=== PATIENT | female | born 1990 | race Caucasian/White ===

== ENCOUNTER 2019-06-30 10:10 | Outpatient (RCR) | payer BC, SELFPAY ==
[2019-06-30 10:48] VITALS: BP 110/69; PULSE 89
== END 2019-08-22 08:54 | disposition home or self-care (01) ==
LOC: ANHOBOP 10:10
PROVIDERS: PCP Internal Medicine; Visit Provider Obstetrics & Gynecology
DX: O36.8120 Decreased fetal movements, second trimester, not applicable or unspecified (principal); Z3A.19 19 weeks gestation of pregnancy
CPT/HCPCS: 59025

== ENCOUNTER 2019-07-13 08:46 | Outpatient (CLI) | payer BC, SELFPAY ==
[2019-07-13 09:21] LABS: Basophils Absolute Auto 0.03 K/mm3 (0.00-0.10); Basophils Percent Auto 0.4 % (0.0-1.0); Eosinophils Percent Auto 1.2 % (1.0-6.0); Hematocrit 33.8 % (35.0-49.0); Hemoglobin 11.5 g/dL (12.0-15.0); Immature Granulocyte Absolute 0.07 K/mm3 (0.00-0.00); Immature Granulocyte Percent A 0.8 % (0.0-0.0); Lymphocytes Absolute Auto 1.56 K/mm3 (1.10-4.50); Lymphocytes Percent Auto 18.3 % (18.0-42.0); Mean Corpuscular Hemoglobin 29.4 pg (27.0-31.0); Mean Corpuscular Volume 86.4 fL (78.0-102.0); Mean Platelet Volume 10.6 fl (9.2-11.8); Monocytes Percent Auto 5.9 % (2.0-11.0); Neutrophils Absolute Auto 6.3 K/mm3 (1.7-7.2); Neutrophils Percent Auto 73.4 % (50.0-70.0); Platelet Count Result 251 K/mm3 (150-420); Red Blood Count 3.91 M/mm3 (4.20-5.40); Red Cell Distribution Width 13.9 % (11.6-14.4); White Blood Count 8.5 K/mm3 (4.8-10.8)
[2019-07-13 10:27] LABS: Alanine Aminotransferase 12 U/L (14-59); Albumin Level 2.9 g/dL (3.4-5.0); Alkaline Phosphatase 82 U/L (46-116); Aspartate Amino Transferase 13 U/L (15-37); Bilirubin,Total 0.3 mg/dL (0.00-1.00); Blood Urea Nitrogen 8 mg/dL (7-18); Calcium 8.5 mg/dL (8.5-10.1); Carbon Dioxide 25 mmol/L (21-32); Chloride 103 mmol/L (98-108); Estimated Glomerular Filt Rate > 60; Free T4 Free Thyroxine 0.82 ng/dL (0.76-1.46); Glucose 76 mg/dL (70-99); Osmolality Calculated 283 mOsm/kg (285-295); Sodium 138 mmol/L (136-145); Thyroid Stimulating Hormone 0.48 uIU/mL (0.36-3.74); Total Protein 6.9 g/dL (6.4-8.2)
[2019-07-17 09:05] LABS: Toxoplasma IgM Antibody <8.00 AU/mL (<8.00)
[2019-07-17 10:02] LABS: Toxoplasma IgG Antibody <7.20 IU/mL (<7.20)
[2019-07-17 14:43] LABS: CMV IgG Antibody <0.60 U/mL (<0.60)
[2019-07-18 13:34] LABS: Hematocrit 36.7 % (35.0-45.0); Hemoglobin 11.7 g/dL (11.7-15.5); MCH 29.3 pg (27.0-33.0); MCV 91.8 FL (80.0-100.0); RDW 16.2 % (11.0-15.0)
== END 2019-07-13 08:47 | disposition home or self-care (01) ==
LOC: CHSLAB 08:51
PROVIDERS: PCP Internal Medicine
DX: P83.2 Hydrops fetalis not due to hemolytic disease (principal); O35.9 Maternal care for (suspected) fetal abnormality and damage, unspecified
CPT/HCPCS: 36415; 80053; 83021; 84439; 84443; 85025; 86644; 86747; 86777; 86850; 86900; 86901

== ENCOUNTER 2019-08-16 17:44 | Inpatient (IN) | payer BC, SELFPAY ==
--- NOTE | ~2019-08-16 | US_ITS ---
EXAMINATION: US OB limited DATE: 08/18/2019 14:12 INDICATION: Retained products of conception. TECHNIQUE: Multiple transabdominal sonographic images of the pelvis were obtained. COMPARISON: None. FINDINGS: The uterus is enlarged, consistent with recent . The endometrial complex measures up to 15 m m in thickness. No internal vascularity visualized. IMPRESSION: 1. Thickened endometrial complex suspicious for retained products of conception. Reviewed, dictated and finalized at location A. IMPRESSION: 1. Thickened endometrial complex suspicious for retained products of conception .
[2019-08-16 18:34] VITALS: BMI 27.0
[2019-08-16 18:51] LABS: Basophils Percent Auto 0.4 % (0.2-1.2); Eosinophils Absolute Auto 0.1 K/mm3 (0-0.3); Hematocrit 32.8 % (37.0-47.0); Hemoglobin 10.7 g/dL (12.0-15.0); Immature Granulocyte Absolute 0.12 K/mm3 (0.00-0.031); Immature Granulocyte Percent A 1.3 % (0-0.5); Lymphocytes Absolute Auto 2.11 K/mm3 (0.9-3.2); Lymphocytes Percent Auto 22.8 % (18.3-44.2); Mean Corpuscular HGB Conc 32.6 g/dl (32-36); Mean Corpuscular Hemoglobin 28.2 pg (26-34); Mean Corpuscular Volume 86.5 fl (80-100); Mean Platelet Volume 10.8 fl (7.4-10.4); Monocytes Absolute Auto 0.6 K/mm3 (0.1-0.6); Monocytes Percent Auto 6.6 % (2.6-8.5); Neutrophils Absolute Auto 6.3 K/mm3 (1.3-6.7); Neutrophils Percent Auto 67.9 % (45.5-73.1); Platelet Count Result 303 k/mm3 (150-375); Red Blood Count 3.79 M/mm3 (4.2-5.4); White Blood Count 9.2 K/mm3 (4.5-10.0)
[2019-08-16 19:00] VITALS: RESP 20; TEMP 37.4
[2019-08-16 19:09] VITALS: BP 111/71; PULSE 89
[2019-08-16] MEDS: OXYTOCIN 30 UNITS/NS 500 ML 30 UNITS/500 ML BAG IV CONT (19:21)
[2019-08-16] MEDS: LACTATED RINGERS 1,000 ML 125 ML IV CONT (19:21)
[2019-08-16 19:33] LABS: Free T4 Free Thyroxine 0.66 ng/mL (0.78-2.19)
[2019-08-16 20:00] VITALS: BP 115/63; PULSE 82
--- NOTE | 2019-08-16 20:43 | LDADM ---
This patient, Nicky Mao, was admitted to Labor/Delivery/Recovery 110 on 08/16/19 at 17:44. Plans for labor, pain management and were discussed with patient. Patient/family oriented to hospital policies and general routines including ID bracelet, bed and alarms, visiting hours, pain management, procedures, bathroom and other care routines, personal items, smoking policy, room service/diet and guest tray routines, and visiting hours. Patient/Family are encouraged to report perceived risks to care and to ask questions if they do not understand what they are told or what they should do. See OBIX for further documentation.
[2019-08-17] VITALS (38 sets, daily range): BP systolic 82–119; BP diastolic 42–73; PULSE 70–101; RESP 18–20; TEMP 36.4–36.8
[2019-08-17] MEDS: LACTATED RINGERS 1,000 ML 125 ML IV CONT ×2 (03:02→16:47)
--- NOTE | 2019-08-17 10:39 | WPDOBADMIT ---
Obstetrics - Admit Note Admission Note: record reviewed. No pertinent additions to the history and/or any subsequent changes in the physical findings that are not consistent with the expected course of the were found. Additions to the history and/or subsequent changes in the physical findings follow. at 26 weeks with known trisomy 21 fetus with multiple anomalies was found to have IUFD on U/S yesterday. She was admitted for induction of labor 08/15 and given pitocin throughout the night. Cervix 1/thick/-3. AROM unable to be performed. Will stop pitocin and start cytotec 25 mcg vaginally Q4 hours until cervix more favorable. She and agree with this plan.
[2019-08-17] MEDS: MISOPROSTOL 25 MCG TABLET VAGINAL ×2 (12:24→23:23)
[2019-08-17] MEDS: MISOPROSTOL 50 MCG TABLET PO (20:09)
[2019-08-18] VITALS (77 sets, daily range): BP systolic 74–226; BP diastolic 30–182; PULSE 70–270; RESP 12–18; TEMP 36.4–37.7; O2SAT 99–100
[2019-08-18] MEDS: LACTATED RINGERS 1,000 ML 125 ML IV CONT ×3 (00:08→15:30)
[2019-08-18] MEDS: MISOPROSTOL 25 MCG TABLET VAGINAL (03:23)
--- NOTE | 2019-08-18 08:07 | PM.OBPNLAB ---
Pain Control Date/time seen: 08/18/19 08:07 Pain control: tolerating well Pelvic Exam Dilation (cm): 3 Effacement (%): 50 station: -2 Amniotic membrane status: Ruptured Comments: AROM with clear fluid noted Contractions Monitor mode: External Contraction frequency: 2 Contraction pattern: Regular Contraction phase: Resting Contraction intensity: Mild Status Comments: No monitoring due to IUFD Assessment and Plan Pitocin rate (mU/min): 10 Assessment: induction ongoing Plan: continuous present management
[2019-08-18] MEDS: KETOROLAC 30 MG/ML VIAL (*BKC) (09:43)
--- NOTE | 2019-08-18 12:22 | WPDANESEPP ---
Anes - Eval Pre Procedure Procedure: Labor Epidural Date/Time: 08/18/19 12:22 Surgeon: Jake Preop Diagnosis: IUFD, Labor Pain Pre Op Diagnosis: Demise Patient Data Age: 29 Gender: F Height: 6 ft 1 in Weight: 93 kg Last Vital Signs Temp 37.7 C H 08/18/19 12:20 Pulse 100 08/18/19 12:20 Resp 18 08/18/19 03:29 BP 114/65 08/18/19 12:20 Pulse Ox 100 08/18/19 12:17 Allergies Allergy/AdvReac Type Severity Reaction Status Date / Time Sulfa (Sulfonamide Allergy Unknown Verified 01/28/19 10:08 Antibiotics) Patient hx anesthesia problems: none Family hx anesthesia problems: none PMFSH Family History Family History Father Patient's father is in good health, Onset Age: 59 Diabetes mellitus Grandparent Malignant neoplasm of prostate, Onset Age: 70 Family history of malignant neoplasm of breast, Onset Age: 60 Mother No problems noted. Other Family history of Alzheimer's disease Family history of malignant neoplasm of thyroid High cholesterol Thyroid cancer Social History Social History Smoking status: Never smoker Alcohol intake: never Substance use: never Gender identity (if verbalized by the patient): Female Spiritual care concerns: No Exam Day of Procedure 08/18/19 12:22 Patient weight: normal Heart: regular rate and rhythm Lungs: normal air movement Airway: Mallampati scale class II Neurological: alert and oriented
[2019-08-18] MEDS: OXYTOCIN 30 UNITS/NS 500 ML 30 UNITS/500 ML BAG 999 UNITS IV CONT (13:07)
--- NOTE | 2019-08-18 13:20 | PM.OBPRVD ---
OB - Delivery Note Procedure Delivery date: 08/18/19 Procedure: (IUFD) events: Labor Induction Intrapartal events: Prolonged Labor > 20 hours Induction method: AROM, per misoprostol protocol and per pitocin protocol Delivery monitor: none Route of delivery: Laceration description: None Specimen: Yes Estimated blood loss (mL): 365 Anesthesia type: Epidural Disposition: floor Complications: Manual removal of placenta Baby Date of : 08/18/19 Time of : 12:45 Weeks of gestation at delivery: 26 Infant gender: Female presentation: vertex Placenta delivery description: Manual Removal score one minute: 0 score five minutes: 0 score ten minutes: 0
[2019-08-18] MEDS: ceFAZolin 2 GM/D5W 50 ML 2 GM/50 ML BAG IVPB (14:16)
--- NOTE | 2019-08-18 15:07 | WPDPN ---
Progress Note: A&P Assessment and Plan (1) Retained placenta or amniotic membrane after delivery without hemorrhage: Code(s): O73.1 - Retained portions of placenta and membranes, without hemorrhage Status: Acute Assessment and Plan: She agrees to proceed with D&C and signed consent after R/B/C/A discussed Time Spent With Patient Time with patient: less than 15 minutes Exam Const: General: no acute distress Resp: Auscultation: clear to auscultation bilaterally Cardio: Rate: regular rate Rhythm: regular rhythm GI: GI Palp: Yes Soft to palpation Other: Fundus firm nontender below umbilicus Extrem: General: no edema Psych: Mental Status: mental status grossly normal Objective Data Vital Signs Vital Signs: Vital Signs - 24 hr 08/17/19 16:39 08/17/19 17:00 08/17/19 17:30 Temperature Pulse Rate 87 86 92 Respiratory Rate Blood Pressure 110/64 114/62 113/68 Pulse Oximetry 08/17/19 18:00 08/17/19 18:18 08/17/19 18:30 Temperature 36.4 C L Pulse Rate 90 87 Respiratory Rate 20 Blood Pressure 108/63 119/65 Pulse Oximetry 08/17/19 19:00 08/17/19 19:30 08/17/19 20:00 Temperature Pulse Rate 95 82 84 Respiratory Rate Blood Pressure 114/63 108/64 114/69 Pulse Oximetry 08/17/19 20:30 08/17/19 21:00 08/17/19 21:30 Temperature Pulse Rate 88 79 70 Respiratory Rate Blood Pressure 116/65 101/42 L 96/52 L Pulse Oximetry 08/17/19 22:00 08/17/19 22:30 08/17/19 23:00 Temperature Pulse Rate 77 83 99 Respiratory Rate Blood Pressure 86/60 L 98/51 L 114/73 Pulse Oximetry 08/17/19 23:28 08/17/19 23:30 08/18/19 00:00 Temperature 36.8 C Pulse Rate 86 73 Respiratory Rate 18 Blood Pressure 107/60 96/60 L Pulse Oximetry 08/18/19 00:31 08/18/19 01:00 08/18/19 01:30 Temperature Pulse Rate 71 71 78 Respiratory Rate Blood Pressure 102/53 L 93/52 L 92/47 L Pulse Oximetry 08/18/19 02:00 08/18/19 02:30 08/18/19 03:00 Temperature Pulse Rate 72 81 84 Respiratory Rate Blood Pressure 95/55 L 102/57 L 106/64 Pulse Oximetry 08/18/19 03:29 08/18/19 03:30 08/18/19 04:00 Temperature 36.4 C Pulse Rate 84 72 Respiratory Rate 18 Blood Pressure 107/67 101/60 Pulse Oximetry 08/18/19 04:30 08/18/19 05:00 08/18/19 05:30 Temperature Pulse Rate 84 79 86 Respiratory Rate Blood Pressure 98/63 L 108/55 L 86/63 L Pulse Oximetry 08/18/19 06:00 08/18/19 06:30 08/18/19 07:00 Temperature Pulse Rate 78 86 92 Respiratory Rate Blood Pressure 108/59 L 100/51 L 102/69 Pulse Oximetry 08/18/19 07:30 08/18/19 08:00 08/18/19 08:30 Temperature 37.6 C Pulse Rate 99 100 90 Respiratory Rate Blood Pressure 109/65 108/68 104/62 Pulse Oximetry 08/18/19 09:00 08/18/19 09:30 08/18/19 10:30 Temperature Pulse Rate 86 98 92 Respiratory Rate Blood Pressure 111/68 126/69 111/69 Pulse Oximetry 08/18/19 11:00 08/18/19 11:30 08/18/19 12:00 Temperature Pulse Rate 99 98 97 Respiratory Rate Blood Pressure 115/72 114/64 107/48 L Pulse Oximetry 08/18/19 12:02 08/18/19 12:04 08/18/19 12:06 Temperature Pulse Rate 88 88 Respiratory Rate Blood Pressure 107/57 L 108/68 Pulse Oximetry 100 08/18/19 12:07 08/18/19 12:08 08/18/19 12:10 Temperature Pulse Rate 91 93 Respiratory Rate Blood Pressure 115/63 119/68 Pulse Oximetry 100 08/18/19 12:12 08/18/19 12:13 08/18/19 12:15 Temperature Pulse Rate 94 89 Respiratory Rate Blood Pressure 115/68 104/58 L Pulse Oximetry 100 08/18/19 12:17 08/18/19 12:18 08/18/19 12:20 Temperature 37.7 C H Pulse Rate 89 100 Respiratory Rate Blood Pressure 103/65 114/65 Pulse Oximetry 100 08/18/19 12:22 08/18/19 12:23 08/18/19 12:25 Temperature Pulse Rate 101 H 107 H Respiratory Rate Blood Pressure 100/61 106/72 Pulse Oximetry 100 08/18/19 12:27 08/18/19
--- NOTE | 2019-08-18 15:18 | PM.IMHP ---
H&P: HPI History of Present Illness Chief complaint: Demise Narrative: Nicky Mao is a 29 year old female at 26 weeks with known trisomy 21 fetus and IUFD diagnosed Tuesday 08/15 here for induction of labor (late entry, H&P done 08/17) Review of Systems Review of Systems: All systems reviewed & are unremarkable except as noted in HPI and below PMFSH Family History Family History Father Patient's father is in good health, Onset Age: 59 Diabetes mellitus Grandparent Malignant neoplasm of prostate, Onset Age: 70 Family history of malignant neoplasm of breast, Onset Age: 60 Mother No problems noted. Other Family history of Alzheimer's disease Family history of malignant neoplasm of thyroid High cholesterol Thyroid cancer Social History Social History Smoking status: Never smoker Alcohol intake: never Substance use: never Gender identity (if verbalized by the patient): Female Spiritual care concerns: No Meds Home Medications and Allergies Home Medications Medication Instructions Recorded Confirmed Type hydrocodone-acetaminophen [[place]] 1 tablet PO Q4H PRN #20 tablet 08/18/19 Rx Allergies Allergy/AdvReac Type Severity Reaction Status Date / Time Sulfa (Sulfonamide Allergy Unknown Verified 01/28/19 10:08 Antibiotics) Vital Signs Vital Signs - 24 hr 08/17/19 16:39 08/17/19 17:00 08/17/19 17:30 Temperature Pulse Rate 87 86 92 Respiratory Rate Blood Pressure 110/64 114/62 113/68 Pulse Oximetry 08/17/19 18:00 08/17/19 18:18 08/17/19 18:30 Temperature 36.4 C L Pulse Rate 90 87 Respiratory Rate 20 Blood Pressure 108/63 119/65 Pulse Oximetry 08/17/19 19:00 08/17/19 19:30 08/17/19 20:00 Temperature Pulse Rate 95 82 84 Respiratory Rate Blood Pressure 114/63 108/64 114/69 Pulse Oximetry 08/17/19 20:30 08/17/19 21:00 08/17/19 21:30 Temperature Pulse Rate 88 79 70 Respiratory Rate Blood Pressure 116/65 101/42 L 96/52 L Pulse Oximetry 08/17/19 22:00 08/17/19 22:30 08/17/19 23:00 Temperature Pulse Rate 77 83 99 Respiratory Rate Blood Pressure 86/60 L 98/51 L 114/73 Pulse Oximetry 08/17/19 23:28 08/17/19 23:30 08/18/19 00:00 Temperature 36.8 C Pulse Rate 86 73 Respiratory Rate 18 Blood Pressure 107/60 96/60 L Pulse Oximetry 08/18/19 00:31 08/18/19 01:00 08/18/19 01:30 Temperature Pulse Rate 71 71 78 Respiratory Rate Blood Pressure 102/53 L 93/52 L 92/47 L Pulse Oximetry 08/18/19 02:00 08/18/19 02:30 08/18/19 03:00 Temperature Pulse Rate 72 81 84 Respiratory Rate Blood Pressure 95/55 L 102/57 L 106/64 Pulse Oximetry 08/18/19 03:29 08/18/19 03:30 08/18/19 04:00 Temperature 36.4 C Pulse Rate 84 72 Respiratory Rate 18 Blood Pressure 107/67 101/60 Pulse Oximetry 08/18/19 04:30 08/18/19 05:00 08/18/19 05:30 Temperature Pulse Rate 84 79 86 Respiratory Rate Blood Pressure 98/63 L 108/55 L 86/63 L Pulse Oximetry 08/18/19 06:00 08/18/19 06:30 08/18/19 07:00 Temperature Pulse Rate 78 86 92 Respiratory Rate Blood Pressure 108/59 L 100/51 L 102/69 Pulse Oximetry 08/18/19 07:30 08/18/19 08:00 08/18/19 08:30 Temperature 37.6 C Pulse Rate 99 100 90 Respiratory Rate Blood Pressure 109/65 108/68 104/62 Pulse Oximetry 08/18/19 09:00 08/18/19 09:30 08/18/19 10:30 Temperature Pulse Rate 86 98 92 Respiratory Rate Blood Pressure 111/68 126/69 111/69 Pulse Oximetry 08/18/19 11:00 08/18/19 11:30 08/18/19 12:00 Temperature Pulse Rate 99 98 97 Respiratory Rate Blood Pressure 115/72 114/64 107/48 L Pulse Oximetry 08/18/19 12:02 08/18/19 12:04 08/18/19 12:06 Temperature Pulse Rate 88 88 Respiratory Rate Blood Pressure 107/57 L 108/68 Pulse
--- NOTE | 2019-08-18 15:22 | WPDHPUPDATE1 ---
History and Physical Update Update Date/Time: 08/18/19 15:22 History and Physical has been reviewed, including an updated exam of the patient. There are NO changes in the patient's condition. Risks, benefits, and alternatives have been discussed and questions answered. Patient agrees to proceed with procedure.
--- NOTE | 2019-08-18 15:24 | P.PNAN_ITS ---
Anes - Eval Pre Procedure Procedure: Suction D&C Date/Time: 08/18/19 15:24 Surgeon: Jake Preop Diagnosis: Retained Placenta Pre Op Diagnosis: Demise Patient Data Age: 29 Gender: F Height: 6 ft 1 in Weight: 93 kg Last Vital Signs Temp 37.7 C H 08/18/19 12:20 Pulse 117 H 08/18/19 15:00 Resp 18 08/18/19 03:29 BP 115/80 08/18/19 15:00 Pulse Ox 100 08/18/19 13:19 Allergies Allergy/AdvReac Type Severity Reaction Status Date / Time Sulfa (Sulfonamide Allergy Unknown Verified 01/28/19 10:08 Antibiotics) Home Medications Medication Instructions Recorded Confirmed Type hydrocodone-acetaminophen [[place]] 1 tablet PO Q4H PRN #20 tablet 08/18/19 Rx Hgb 10.7 Hct 32.8 Patient hx anesthesia problems: none Family hx anesthesia problems: none Prior Surgeries: Biopsy PMFSH Family History Family History Father Patient's father is in good health, Onset Age: 59 Diabetes mellitus Grandparent Malignant neoplasm of prostate, Onset Age: 70 Family history of malignant neoplasm of breast, Onset Age: 60 Mother No problems noted. Other Family history of Alzheimer's disease Family history of malignant neoplasm of thyroid High cholesterol Thyroid cancer Social History Social History Smoking status: Never smoker Alcohol intake: never Substance use: never Gender identity (if verbalized by the patient): Female Spiritual care concerns: No Exam Day of Procedure 08/18/19 15:24 Patient weight: normal Heart: regular rate and rhythm Lungs: normal air movement Airway: Mallampati scale class II Neurological: alert and oriented Other findings: NPO after 8 AM
--- NOTE | 2019-08-18 16:03 | WPDANESEFPP ---
Anes - Eval Final PreProcedure Day of Procedure 08/18/19 16:03 Patient weight: overweight Heart: regular rate and rhythm Lungs: clear to auscultation Airway: Mallampati scale class II Neurological: alert and oriented Last oral intake: >/= 8 hours ASA classification: II Emergent: yes Anesthetic plan: proceed Anesthesia type and monitoring: regional epidural Other findings: exam per SB Informed Consent: The patient's anesthetic plan and its attendant risks and benefits were discussed with the patient/family/POA. Questions were solicited and answers provided to the satisfaction of the patient/family/POA.
[2019-08-18] MEDS: LACTATED RINGERS 1,000 ML 30 ML IV CONT (16:22)
--- NOTE | 2019-08-18 16:22 | PC.NURSE ---
1550--Pt. to OR via stretcher accompanied by Azalea Sorensen CRNA.
--- NOTE | 2019-08-18 16:23 | PM.OP ---
Procedure Note - Brief Procedure Note - Brief Date of procedure: 08/18/19 Pre-op diagnosis: Demise Retained placenta Post-op diagnosis: same Procedure performed: Suction D&C Anesthesia: epidural Surgeon: Ana Lilia Joseph MD Estimated blood loss (mL): 200 Drains: No Packing: No Pathology: yes Complications: No immediate complications Condition: stable Disposition: PACU Findings: small amount POCs
--- NOTE | 2019-08-18 16:27 | P.DS_ITS ---
DS: Diagnosis Admitting Diagnosis Admitting Diagnosis: Retained portions of placenta and membranes, without hemorr demario Discharge Diagnosis (1) IUFD at 20 weeks or more of gestation: Code(s): O36.4XX0 - Maternal care for intrauterine , not applicable or unspecified Status: Acute (2) Retained placenta or amniotic membrane after delivery without hemorrhage: Code(s): O73.1 - Retained portions of placenta and membranes, without hemorrhage Status: Acute OB - DS: Summary OB Procedures : None OB Procedures Intrapartum: Spontaneous Vag Delivery and Uterine exploration OB Procedures: : Curettage Peripartum Data Infant Delivery Method: Natural Vaginal Laceration description: None Procedures: Procedures Operation Date: 08/18/19 15:45 Actual Procedures Side Surgeon p D&C Suction and Sharp Not Applicable Ana Lilia Joseph MD complications: retained placenta Status at Discharge Functional status at discharge: independent ambulation Overall status at discharge: patient is progressing back to baseline Time Spent with Patient Time attestation: Total time spent providing and/or coordinating discharge services: Time spent: Less than 30 minutes DS: Data Data Completed and Pending Pending studies at discharge: Pending at discharge 08/18/19 13:09 Surgical [PTH] Routine 08/18/19 16:10 Surgical [PTH] Routine Discharge Plan Discharge Attending physician on discharge: Ana Lilia Joseph Discharging Clinician: Ana Lilia Joseph Patient Disposition: Home, Self-Care Activity: may shower and pelvic rest Diet: regular Patient Instructions: Antibiotic Form Stand Alone Forms: General Discharge Information Follow-up/Referrals: Ana Lilia Joseph MD [Physician] - 1 Week Discharge Medications: New hydrocodone-acetaminophen [[place]] 5-325 mg tablet 1 tablet PO Q4H PRN (Reason: pain) Qty: 20 RF: 0 ibuprofen 600 mg tablet 600 mg PO Q6H PRN (Reason: pain) Qty: 60 RF: 0 Date of admission: 08/16/19 17:44 Primary Care Provider: Cathryn France Admitting Provider: Ana Lilia Joseph Attending physician on admission: Ana Lilia Joseph
--- NOTE | 2019-08-18 18:19 | PC.NURSE ---
1605--Pt. up to BR via ambulation with minimal assist. Pt. unable to void at this time, pericare and peripad placed. Pt. back to bed with no assist, stable on her feet.
--- NOTE | 2019-08-18 18:45 | PC.NURSE ---
Patient ambulated independently to restroom with RN in room. Patient able to void 300cc of urine. Pericare performed by patient. Patient denies pain. Lochia scant-moderate.
--- NOTE | 2019-08-18 18:47 | PC.NURSE ---
Baby taken to room to patient and . Mementos provided to family. Patient instructed to call for RN when ready for discharge.
--- NOTE | 2019-08-18 19:25 | PC.NURSE ---
Discharge instructions reviewed with patient. Patient states understanding of discharge instructions and denies questions. Patient and ambulated with RN and Baby to nursery.
--- NOTE | 2019-08-18 19:28 | PC.NURSE ---
Patient left unit ambulating.
--- NOTE | 2019-08-18 19:30 | PC.NURSE ---
home notified to come picking table worker body.
--- NOTE | 2019-08-18 20:00 | PC.NURSE ---
director channel present to garbage pick up worker baby from unit.
--- NOTE | 2019-08-19 09:56 | WPDANESPN ---
Anes - Prog Note Post-Op Date/Time: 08/19/19 09:56 Vital Signs: Last Vital Signs Temp 98.3 F 08/18/19 17:07 Pulse 85 08/18/19 18:30 Resp 18 08/18/19 17:59 BP 114/67 08/18/19 18:30 Pulse Ox 99 08/18/19 16:50 I/O: Intake & Output 08/18/19 08/19/19 08/19/19 23:59 07:59 15:59 Intake Total 0 Output Total 300 Balance -300 Laboratory Tests 08/16/19 18:39 Patient Feedback: Patient satisfied with anesthetic care.
[2019-08-19 10:31] LABS: Rapid Plasma Reagin Non-Reactive (NonReactive)
[2019-08-20 02:32] LABS: Lupus dRVVT Confirmation Positive (Negative)
[2019-08-20 08:51] LABS: Lupus dRVVT Screen 46 sec (<=45); PTT-LA Screen 40 sec (<=40)
--- NOTE | 2019-08-20 13:08 | PC.NURSE ---
late entry - 08-17-2019 Met with Nicky and her . [facility] and support presented to them. Pt did sign consent for f/u from [facility] after her discharge from the hospital. Pt and her have done some searching for support. Verbalize bertram and family support as well. Committed to f/u with them in the next week. They agreed.
[2019-08-20 13:24] LABS: Lupus dRVVT Conf Chg Test Yes; LupusdRVVT 1:1Mix Int Chg Test Yes
[2019-08-20 15:56] LABS: Anti Cardio Antibody IgM <12 MPL (<=12); Anti Cardiolipin Antibody IgA <11 APL (<=11); Anti Cardiolipin Antibody IgG <14 GPL (<=14)
[2019-08-23 08:09] LABS: CMV IgG Antibody <0.60 U/mL (<0.60)
[2019-08-24 19:46] LABS: CMV IgM Antibody <30.00 AU/mL (<30.00)
--- NOTE | 2019-09-06 08:25 | OP_ITS ---
DATE OF PROCEDURE: 08/18/2019 PREOPERATIVE DIAGNOSIS: Retained placenta, status post second trimester vaginal delivery of an intrauterine demise. POSTOPERATIVE DIAGNOSIS: Retained placenta, status post second trimester vaginal delivery of an intrauterine demise. PROCEDURE PERFORMED: Suction, dilation and curettage. SURGEON: Ana Lilia Joseph M.D. ANESTHESIA: Epidural. ESTIMATED BLOOD LOSS: 200 mL. COMPLICATIONS: None. FINDINGS: Moderate amount of products of conception. INDICATIONS: She delivered a 26-week intrauterine demise, who had known trisomy 21 and multiple anomalies and had retained placenta after delivery, so she was advised to proceed with suction D and C, and she signed consent after the risks, benefits, complications, and alternatives were discussed for the procedure. DESCRIPTION OF PROCEDURE: She was taken to the operating room where her epidural anesthesia was found be adequate. She was prepared and draped in the normal sterile fashion in the dorsal lithotomy position. A speculum was placed. The anterior lip of the cervix was grasped with an Allis clamp. The cervix was already readily dilated, so a #14 curved suction curette was introduced and the uterus evacuated of its contents with a small amount of retained placental tissue obtained. A gentle sharp curettage was then performed to loosen any remaining tissue and one more pass was made with the suction curette with minimal blood and no tissue obtained. The Allis clamp was removed. The speculum was removed from the vagina. She tolerated the procedure well. Sponge, lap, and instrument counts were correct x2 and she was taken to the recovery area in stable condition. D I MT: Sander
== END 2019-08-18 19:28 | disposition home or self-care (01) | DRG 796 ==
PROVIDERS: Admitting Provider Obstetrics & Gynecology; PCP Internal Medicine; Visit Provider Obstetrics & Gynecology
PROC: 10E0XZZ Delivery of Products of Conception, External Approach (ICD-10-PCS; principal; 2019-08-18 15:45)
DX: O36.4XX0 Maternal care for intrauterine death, not applicable or unspecified (principal); O60.12X0 Preterm labor second trimester with preterm delivery second trimester, not applicable or unspecified; Z37.1 Single stillbirth; O63.9 Long labor, unspecified; O35.1XX0 Maternal care for (suspected) chromosomal abnormality in fetus, not applicable or unspecified; O73.1 Retained portions of placenta and membranes, without hemorrhage; Z3A.26 26 weeks gestation of pregnancy
CPT/HCPCS: 36415; 76815; 84439; 84443; 85025; 85597; 85613; 85730; 86146; 86147; 86592; 86644; 86645; 86850; 86900; 86901; 88305; 88307; A9270; J0690; J1885; J2405; J2590; J2795; J3010; J7120

== ENCOUNTER 2020-02-12 14:09 | Outpatient (CLI) | payer BC, SELFPAY ==
[2020-02-12 14:19] LABS: Basophils Absolute Auto 0.05 K/mm3 (0.00-0.10); Basophils Percent Auto 0.8 % (0.0-1.0); Eosinophils Absolute Auto 0.19 K/mm3 (0.02-0.50); Hematocrit 40.5 % (35.0-49.0); Hemoglobin 13.1 g/dL (12.0-15.0); Immature Granulocyte Absolute 0.02 K/mm3 (0.00-0.00); Immature Granulocyte Percent A 0.3 % (0.0-0.0); Lymphocytes Absolute Auto 1.74 K/mm3 (1.10-4.50); Lymphocytes Percent Auto 27.6 % (18.0-42.0); Mean Corpuscular HGB Conc 32.3 g/dL (32.0-36.0); Mean Corpuscular Hemoglobin 28.4 pg (27.0-31.0); Mean Corpuscular Volume 87.9 fL (78.0-102.0); Mean Platelet Volume 10.7 fl (9.2-11.8); Monocytes Absolute Auto 0.58 K/mm3 (0.10-0.90); Monocytes Percent Auto 9.2 % (2.0-11.0); Neutrophils Absolute Auto 3.7 K/mm3 (1.7-7.2); Neutrophils Percent Auto 59.1 % (50.0-70.0); Platelet Count Result 268 K/mm3 (150-420); Red Blood Count 4.61 M/mm3 (4.20-5.40); Red Cell Distribution Width 13.7 % (11.6-14.4); White Blood Count 6.3 K/mm3 (4.8-10.8)
== END 2020-02-12 14:10 | disposition home or self-care (01) ==
LOC: CHSLAB 14:12
PROVIDERS: PCP Internal Medicine; Visit Provider Advanced Practice Midwife
DX: N93.9 Abnormal uterine and vaginal bleeding, unspecified (principal)
CPT/HCPCS: 36415; 85025

== ENCOUNTER 2020-03-02 16:26 | Outpatient (CLI) | payer BC, SELFPAY ==
[2020-03-02 16:37] LABS: Basophils Absolute Auto 0.07 K/mm3 (0.00-0.10); Eosinophils Absolute Auto 0.26 K/mm3 (0.02-0.50); Eosinophils Percent Auto 3.7 % (1.0-6.0); Hematocrit 36.5 % (35.0-49.0); Hemoglobin 11.8 g/dL (12.0-15.0); Immature Granulocyte Absolute 0.02 K/mm3 (0.00-0.00); Immature Granulocyte Percent A 0.3 % (0.0-0.0); Lymphocytes Absolute Auto 2.62 K/mm3 (1.10-4.50); Lymphocytes Percent Auto 37.1 % (18.0-42.0); Mean Corpuscular HGB Conc 32.3 g/dL (32.0-36.0); Mean Corpuscular Hemoglobin 28.2 pg (27.0-31.0); Mean Corpuscular Volume 87.1 fL (78.0-102.0); Mean Platelet Volume 10.8 fl (9.2-11.8); Monocytes Absolute Auto 0.62 K/mm3 (0.10-0.90); Monocytes Percent Auto 8.8 % (2.0-11.0); Neutrophils Absolute Auto 3.5 K/mm3 (1.7-7.2); Neutrophils Percent Auto 49.1 % (50.0-70.0); Platelet Count Result 309 K/mm3 (150-420); Red Blood Count 4.19 M/mm3 (4.20-5.40); Red Cell Distribution Width 13.4 % (11.6-14.4); White Blood Count 7.1 K/mm3 (4.8-10.8)
[2020-03-02 16:57] LABS: Add Urine Microscopic? YES; Appearance Urine Clear (Clear); Bilirubin Urine Negative (Negative); Blood Urine 2+ (Negative); Color Urine Yellow (Yellow); Glucose Urine UA Negative (Negative); Ketones Urine Negative (Negative); Leukocyte Esterase Ur Trace (Negative); Nitrate Urine Negative (Negative); Protein Urine Negative (Negative); Specific Grav Ur >= 1.030 (1.010-1.020); Urobilinogen Urine 0.2 mg/dL (0.2-1.0); pH Urine 5.5 (5.0-8.0)
[2020-03-02 17:04] LABS: Bacteria Urine Trace /hpf; Squamous Epithelial Cell Urine Few /hpf (Few); WBC Urine 0-3 /hpf (0-3)
[2020-03-02 17:43] LABS: Alanine Aminotransferase 8 U/L (14-59); Alkaline Phosphatase 102 U/L (46-116); Anion Gap 8 mmol/L (8-16); Aspartate Amino Transferase 12 U/L (15-37); Bilirubin,Total 0.2 mg/dL (0.00-1.00); Blood Urea Nitrogen 15 mg/dL (7-18); Calcium 9.2 mg/dL (8.5-10.1); Carbon Dioxide 29 mmol/L (21-32); Chloride 104 mmol/L (98-108); Cholesterol 197 mg/dL (0-200); Estimated Glomerular Filt Rate > 60; Ferritin 16 ng/mL (8-252); Free T3 2.31 pg/mL (2.18-3.98); Free T4 Free Thyroxine 0.85 ng/dL (0.76-1.46); Glucose 70 mg/dL (70-99); HDL Direct 61 mg/dL (40-60); Iron 34 ug/dL (50-170); LDL Cholesterol Calculated 124 mg/dL (<130); Magnesium 2.2 mg/dL (1.8-2.4); Osmolality Calculated 290 mOsm/kg (285-295); Percent Iron Saturation 9 % (12-57); Potassium 3.8 mmol/L (3.5-5.1); Sodium 141 mmol/L (136-145); Thyroid Stimulating Hormone 0.83 uIU/mL (0.36-3.74); Total Protein 7.8 g/dL (6.4-8.2); Triglycerides 62 mg/dL (0-150)
== END 2020-03-02 16:27 | disposition home or self-care (01) ==
LOC: CHSLAB 16:27
PROVIDERS: PCP Internal Medicine; Visit Provider Internal Medicine
DX: Z00.00 Encounter for general adult medical examination without abnormal findings (principal); D64.9 Anemia, unspecified; R00.2 Palpitations; E03.4 Atrophy of thyroid (acquired)
CPT/HCPCS: 36415; 80053; 80061; 81001; 82728; 83540; 83550; 83735; 84439; 84443; 84481; 85025

== ENCOUNTER 2020-04-03 08:38 | Outpatient (CLI) | payer BC, SELFPAY ==
[2020-04-03 08:48] LABS: Basophils Absolute Auto 0.04 K/mm3 (0.00-0.10); Basophils Percent Auto 0.8 % (0.0-1.0); Eosinophils Absolute Auto 0.14 K/mm3 (0.02-0.50); Eosinophils Percent Auto 2.7 % (1.0-6.0); Hematocrit 40.4 % (35.0-49.0); Hemoglobin 13.1 g/dL (12.0-15.0); Immature Granulocyte Absolute 0.01 K/mm3 (0.00-0.00); Immature Granulocyte Percent A 0.2 % (0.0-0.0); Lymphocytes Absolute Auto 1.78 K/mm3 (1.10-4.50); Lymphocytes Percent Auto 34.4 % (18.0-42.0); Mean Corpuscular HGB Conc 32.4 g/dL (32.0-36.0); Mean Corpuscular Hemoglobin 29.1 pg (27.0-31.0); Mean Corpuscular Volume 89.8 fL (78.0-102.0); Mean Platelet Volume 10.2 fl (9.2-11.8); Monocytes Percent Auto 5.8 % (2.0-11.0); Neutrophils Absolute Auto 2.9 K/mm3 (1.7-7.2); Neutrophils Percent Auto 56.1 % (50.0-70.0); Platelet Count Result 310 K/mm3 (150-420); Red Cell Distribution Width 13.8 % (11.6-14.4); White Blood Count 5.2 K/mm3 (4.8-10.8)
[2020-04-03 09:55] LABS: Ferritin 21 ng/mL (8-252); Iron 79 ug/dL (50-170); Percent Iron Saturation 16 % (12-57)
== END 2020-04-03 08:39 | disposition home or self-care (01) ==
LOC: CHSLAB 08:39
PROVIDERS: PCP Internal Medicine; Visit Provider Internal Medicine
DX: D50.9 Iron deficiency anemia, unspecified (principal)
CPT/HCPCS: 36415; 82728; 83540; 83550; 85025

== ENCOUNTER 2020-04-10 12:15 | Outpatient (CLI) | payer BC, SELFPAY ==
--- NOTE | ~2020-04-10 | US_ITS ---
EXAMINATION: US thyroid EXAM DATE: 04/10/2020 12:38 INDICATION: E04.1 - Nontoxic single thyroid nodule TECHNIQUE: Multiple grayscale and Doppler images of the thyroid were obtained (by a technologist who performed the scan) and subsequently reviewed. Individual nodules and recommendations may be reporte d in accordance with TI-RADS system as designated by the 2017 ACR White Paper TI-RADS committee. Comp vikason is made to prior examination from 01/17/2019. FINDINGS: Right there are lobe measures 5.4 x 1.7 x 2.0 cm and the left measuring 5.4 x 1.5 x 1.8 cm. There are scattered thyroid nodules, largest in the right thyroid lobe measuring 1.0 x 0.9 x 0.5 cm, category TR 4 nodule. Prior study had measurements of this nodule at 1.3 x 0.9 x 0.6 cm. IMPRESSION: Multinodular goiter, unchanged. Reviewed, dictated and finalized at location A. N SERVICES ASSISTANT
== END 2020-04-10 12:16 | disposition home or self-care (01) ==
LOC: CHSIMG 12:16
PROVIDERS: PCP Internal Medicine; Visit Provider Internal Medicine Endocrinology, Diabetes & Metabolism
DX: E04.1 Nontoxic single thyroid nodule (principal)
CPT/HCPCS: 76536

== ENCOUNTER 2020-10-16 13:53 | Outpatient (CLI) | payer BC, SELFPAY ==
[2020-10-16 14:06] LABS: Basophils Absolute Auto 0.04 K/mm3 (0.00-0.10); Basophils Percent Auto 0.8 % (0.0-1.0); Eosinophils Absolute Auto 0.17 K/mm3 (0.02-0.50); Eosinophils Percent Auto 3.5 % (1.0-6.0); Hemoglobin 12.5 g/dL (12.0-15.0); Immature Granulocyte Absolute 0.01 K/mm3 (0.00-0.00); Immature Granulocyte Percent A 0.2 % (0.0-0.0); Lymphocytes Percent Auto 38.9 % (18.0-42.0); Mean Corpuscular HGB Conc 32.9 g/dL (32.0-36.0); Mean Corpuscular Hemoglobin 28.5 pg (27.0-31.0); Mean Corpuscular Volume 86.6 fL (78.0-102.0); Mean Platelet Volume 10.5 fl (9.2-11.8); Monocytes Absolute Auto 0.38 K/mm3 (0.10-0.90); Monocytes Percent Auto 7.8 % (2.0-11.0); Neutrophils Absolute Auto 2.4 K/mm3 (1.7-7.2); Neutrophils Percent Auto 48.8 % (50.0-70.0); Platelet Count Result 268 K/mm3 (150-420); Red Blood Count 4.39 M/mm3 (4.20-5.40); Red Cell Distribution Width 12.9 % (11.6-14.4); White Blood Count 4.9 K/mm3 (4.8-10.8)
[2020-10-16 15:23] LABS: Ferritin 24 ng/mL (8-252); Free T4 Free Thyroxine 0.85 ng/dL (0.76-1.46); Iron 58 ug/dL (50-170); Percent Iron Saturation 15 % (12-57); Thyroid Stimulating Hormone 0.62 uIU/mL (0.36-3.74)
== END 2020-10-16 13:54 | disposition home or self-care (01) ==
LOC: CHSLAB 13:55
PROVIDERS: PCP Internal Medicine; Visit Provider Internal Medicine Endocrinology, Diabetes & Metabolism
DX: E04.1 Nontoxic single thyroid nodule (principal); D64.9 Anemia, unspecified
CPT/HCPCS: 36415; 82728; 83540; 83550; 84439; 84443; 85025

== ENCOUNTER 2020-12-30 08:46 | Outpatient (CLI) | payer BC, SELFPAY | END 2020-12-30 08:47 | disposition home or self-care (01) | LOC: CHSAUDIO 08:49 | PROVIDERS: PCP Internal Medicine; Visit Provider Nurse Practitioner Family | DX: H91.93 Unspecified hearing loss, bilateral (principal) | CPT/HCPCS: 92557; 92567 ==

== ENCOUNTER 2021-08-27 00:01 | Inpatient (IN) | payer BC, SELFPAY ==
[2021-08-27] VITALS (95 sets, daily range): BP systolic 87–136; BP diastolic 40–79; PULSE 55–99; RESP 16–18; TEMP 36.3–37.2; O2SAT 98–100; BMI 31.1
--- OUTSIDE RECORDS SUMMARY | 2021-08-27 00:05 | XMS_ITS | Encounter Summary ---
:1990 Author Care Team Providers Name Role Phone Cathryn France MD Primary Care Provider [phone] Reason for Visit None recorded. Assessment and Plan 1. Large for gestation age fetus ? US, obstetric, follow-up Discussion Note: None recorded.Patient educational handouts: No information available. Plan of Care Reminders Provider Appointments None ? ? recorded. Lab None ? ? recorded. Referral None ? ? recorded. Procedures None ? ? recorded. Surgeries None ? ? recorded. Imaging US, 08/17/2021 [place] [facility], Follow-up Medications Name Start Date ? ? Beulah Devika Breast Pump ? ? Medications Administered None recorded. Vitals None recorded. Results Lab Results None recorded. Allergies Code Code System Name Reaction Severity Onset Sulfa ? ? ? (Sulfonamide Antibiotics) Problems Name Status Onset Date Source ? Active 02/19/2021 ? Large for Gestation Age Fetus Acti
--- OUTSIDE RECORDS SUMMARY | 2021-08-27 00:05 | XMS_ITS | Encounter Summary ---
:1990 Author Care Team Providers Name Role Phone Cathryn France MD Primary Care Provider [phone] Reason for Visit OB visit Assessment and Plan 1. Shoulder dystocia with antena rony problem 2. Large for gestation age fetus Discussion Note: None recorded.Patient educational handouts: No information available. Plan of Care Reminders Provider Appointments None ? ? recorded. Lab None ? ? recorded. Referral None ? ? recorded. Procedures None ? ? recorded. Surgeries None ? ? recorded. Imaging None ? ? recorded. Medications Name Start Date ? ? Beulah Devika Breast Pump ? ? Medications Administered None recorded. Vitals Height Weight BMI Blood Pressure 6 ft 1 in 233 lbs 30.7 kg/m2 110/75 mm[Hg] Results Lab Results None recorded. Allergies Code Code System Name Reaction Severity Onset Sulfa ? ? ? (Sulfonamide Antibiotics) Problems Name Status Onset Date Source ? [place]
--- OUTSIDE RECORDS SUMMARY | 2021-08-27 00:05 | XMS_ITS | Encounter Summary ---
:1990 Author Care Team Providers Name Role Phone Cathryn France MD Primary Care Provider [phone] Reason for Visit OB visit Assessment and Plan 1. Large for gestation age fetus 2. Shoulder dystocia with antena rony problem Discussion Note: None recorded.Patient educational handouts: No [...] ft 1 in 233 lbs 30.7 kg/m2 115/78 mm[Hg] Results Lab Results None recorded. Allergies Code Code System Name Reaction Severity Onset Sulfa ? ? ? (Sulfonamide Antibiotics) Problems Name Status Onset Date Source ? [place]
--- OUTSIDE RECORDS SUMMARY | 2021-08-27 00:05 | XMS_ITS | Encounter Summary ---
:1990 Author Care Team Providers Name Role Phone Cathryn France MD Primary Care Provider [phone] Reason for Visit None recorded. Assessment and Plan 1. Spotting per vagina in pregna ncy ? US, obstetric, limited Discussion Note: None recorded.Patient educational handouts: No information available. Plan of Care Reminders Provider Appointments None ? ? recorded. Lab None ? ? recorded. Referral None ? ? recorded. Procedures None ? ? recorded. Surgeries None ? ? recorded. Imaging US, [facility], Limited 07/01/2021 Medications Name Start Date ? ? Beulah Devika Breast Pump ? ? Medications Administered None recorded. Vitals None recorded. Results Lab Results None recorded. Allergies Code Code System Name Reaction Severity Onset Sulfa ? ? ? (Sulfonamide Antibiotics) Problems Name Status Onset Date Source ? Active 02/19/2021 ? Large for Gestation Age F
--- OUTSIDE RECORDS SUMMARY | 2021-08-27 00:05 | XMS_ITS ---
:1990 Author Care Team Providers Name Role Phone REYMUNDO BUSCH MD Primary Care Provider [phone] Allergies Code Code System Name Reaction Severity Status Onset Sulfa ? ? Active ? (Sulfonamid e Antibiotics ) Medications Name Status Start Date Stop Date ? ? ameda mis finesse Completed ? 020 amoxicillin 875 mg-potassium Completed ? 08/2019 clavulanate 125 mg tablet azithromycin 250 mg tablet Completed 02/26/201103/02 take 2 tablet (500MG) by oral route e very day for 1 day then 1 tablet (250 mg) by oral route once daily for 4 days [place] Fe 1.5/30 (28) 1.5 Completed ? 12/15 mg-30 mcg (21)/75 mg (7) tablet ciclopirox 8 % topical solution Completed ? 12/15/2020 Mahi 0.35 mg tablet Completed 08/23/2018 09/04/2018 take 1 tablet by oral route every day Beulahjose Mandely Breast Pump Active ? Not availabl e Necon 35 (28) 1 mg-35 mcg tablet Completed 08/26/2016 09/22/2016 take 1 tablet by oral route every day for 28 days NuvaRing 0.12 mg-0.015 mg/24 hr vaginal Active 09/05/19 19 Not available insert 1 vaginal ring by vaginal route every month leave in place for 3 weeks, remove for 1 week Ortho Tri-Cyclen (28) 0.18 mg(7)/0.215 mg(7)/0.25 mg(7)-35 m cg tablet Completed 08/07/2015 08/26/2016 take 1 tablet by oral route every day kit car Compl
--- OUTSIDE RECORDS SUMMARY | 2021-08-27 00:05 | XMS_ITS | Encounter Summary ---
:1990 Author Care Team Providers Name Role Phone Cathryn France MD Primary Care Provider [phone] Reason for Visit OB visit 31wks Assessment and Plan 1. Routine care Discussion Note: None recorded.Patient educational handouts: No [...] BMI Blood Pressure 6 ft 1 in 222 lbs 29.3 kg/m2 112/73 mm[Hg] Results Lab Results None recorded. Allergies Code Code System Name Reaction Severity Onset Sulfa ? ? ? (Sulfonamide Antibiotics) Problems Name Status Onset Date Source ? Active 02/19/2021 ?
--- OUTSIDE RECORDS SUMMARY | 2021-08-27 00:05 | XMS_ITS | Encounter Summary ---
:1990 Author Care Team Providers Name Role Phone Cathryn France MD Primary Care Provider [phone] Reason for Visit None recorded. Assessment and Plan 1. Large for gestation age fetus ? US, obstetric, follow-up Discussion Note: None recorded.Patient educational handouts: No information available. Plan of Care Reminders Provider Appointments None ? ? recorded. Lab None ? ? recorded. Referral None ? ? recorded. Procedures None ? ? recorded. Surgeries None ? ? recorded. Imaging US, 07/12/2021 [facility], Follow-up Medications Name Start Date ? ? Beulah Devika Breast Pump ? ? Medications Administered None recorded. Vitals None recorded. Results Lab Results None recorded. Allergies Code Code System Name Reaction Severity Onset Sulfa ? ? ? (Sulfonamide Antibiotics) Problems Name Status Onset Date Source ? Active 02/19/2021 ? Large for Gestation Age Fetus Act
--- OUTSIDE RECORDS SUMMARY | 2021-08-27 00:05 | XMS_ITS | Encounter Summary ---
:1990 Author Care Team Providers Name Role Phone Cathryn France MD Primary Care Provider [phone] Reason for Visit OB visit OB [id number] EDC 09/03/2021 LMP 11/27/2020 Assessment and Plan Assessment Note Patient is __38_weeks . Dis cussed plan. 1. Routine care Discussion Note: None recorded.Patient [...] BMI Blood Pressure 6 ft 1 in 236 lbs 31.1 kg/m2 119/76 mm[Hg] Results Lab Results None recorded. Allergies Code Code System Name Reaction Severity Onset Sulfa ? ? ? (Sulfonamide Antibiotics) Problems Name
--- OUTSIDE RECORDS SUMMARY | 2021-08-27 00:05 | XMS_ITS | Encounter Summary ---
:1990 Author Care Team Providers Name Role Phone Cathryn France MD Primary Care Provider [phone] Reason for Visit OB visit Assessment and Plan 1. Large for gestation age fetus Discussion Note: [...] ft 1 in 233 lbs 30.7 kg/m2 115/75 mm[Hg] Results Lab Results None recorded. Allergies Code Code System Name Reaction Severity Onset Sulfa ? ? ? (Sulfonamide Antibiotics) Problems Name Status Onset Date Source ? Active 02/19/2021 ? Large for Gestation Age Fetus Active
--- OUTSIDE RECORDS SUMMARY | 2021-08-27 00:05 | XMS_ITS | Encounter Summary ---
:1990 Author Care Team Providers Name Role Phone Cathryn France MD Primary Care Provider [phone] Reason for Visit OB visit Assessment and Plan Assessment Note Patient is ___weeks . Discu ssed plan. 1. Routine care Discussion Note: None [...] BMI Blood Pressure 6 ft 1 in 228 lbs 30.1 kg/m2 107/70 mm[Hg] Results Lab Results None recorded. Allergies Code Code System Name Reaction Severity Onset Sulfa ? ? ? (Sulfonamide Antibiotics) Problems Name Status Onset Date Source ?
--- OUTSIDE RECORDS SUMMARY | 2021-08-27 00:05 | XMS_ITS | Encounter Summary ---
:1990 Author Care Team Providers Name Role Phone Cathryn France MD Primary Care Provider [phone] Reason for Visit OB visit 28w6d / GLUCOSE TODAY Assessment and Plan 1. Routine care Discussion [...] BMI Blood Pressure 6 ft 1 in 223 lbs 29.4 kg/m2 117/75 mm[Hg] Results Lab Results None recorded. Allergies Code Code System Name Reaction Severity Onset Sulfa ? ? ? (Sulfonamide Antibiotics) Problems Name Status Onset Date Source ? Active 02/19/2021
--- NOTE | 2021-08-27 00:19 | LDADM ---
This patient, Nicky Mao, was admitted to Labor/Delivery/Recovery 104 on 08/27/21 at 00:01. Plans for labor, pain management and were discussed with patient. Patient/family oriented to hospital policies and general routines including ID bracelet, bed and alarms, visiting hours, pain management, procedures, bathroom and other care routines, personal items, smoking policy, room service/diet and guest tray routines, infant security routines, and visiting hours. Patient/Family are encouraged to report perceived risks to care and to ask questions if they do not understand what they are told or what they should do. See OBIX for further documentation.
[2021-08-27 00:46] LABS: Basophils Percent Auto 0.3 % (0.2-1.2); Eosinophils Absolute Auto 0.1 K/mm3 (0-0.3); Hematocrit 35.3 % (37.0-47.0); Hemoglobin 11.7 g/dL (12.0-15.0); Immature Granulocyte Absolute 0.08 K/mm3 (0.00-0.031); Immature Granulocyte Percent A 0.9 % (0-0.5); Lymphocytes Absolute Auto 2.23 K/mm3 (0.9-3.2); Lymphocytes Percent Auto 24.6 % (18.3-44.2); Mean Corpuscular HGB Conc 33.1 g/dl (32-36); Mean Corpuscular Hemoglobin 29.3 pg (26-34); Mean Corpuscular Volume 88.5 fl (80-100); Mean Platelet Volume 11.1 fl (7.4-10.4); Monocytes Absolute Auto 0.7 K/mm3 (0.1-0.6); Monocytes Percent Auto 7.2 % (2.6-8.5); Platelet Count Result 271 k/mm3 (150-375); Red Blood Count 3.99 M/mm3 (4.2-5.4); Red Cell Distribution Width 13.5 % (11.5-14.5); White Blood Count 9.1 K/mm3 (4.5-10.0)
[2021-08-27] MEDS: OXYTOCIN 30 UNITS/NS 500 ML 30 UNITS/500 ML BAG IV CONT (01:01)
[2021-08-27] MEDS: LACTATED RINGERS 1,000 ML 125 ML IV CONT ×2 (01:01→05:20)
--- NOTE | 2021-08-27 05:20 | WPDANESEPP ---
Anes - Eval Pre Procedure Procedure: labor epidural Date/Time: 08/27/21 05:20 Surgeon: naren Pre Op Diagnosis: IOL Patient Data Age: 31 Gender: F Height: 1.85 m Weight: 107.2 kg Last Vital Signs Temp 36.9 C 08/27/21 00:41 Pulse 77 08/27/21 05:15 BP 126/73 08/27/21 05:15 Pulse Ox 100 08/27/21 05:19 Allergies Allergy/AdvReac Type Severity Reaction Status Date / Time Sulfa (Sulfonamide Allergy Unknown Rash Verified 08/27/21 00:28 Antibiotics) Home Medications Medication Instructions Recorded Confirmed Type prenat.vits,malu,rym-rsfk-phuvb 1 tablet PO DAILY 04/12/21 08/27/21 History Laboratory Tests 08/27/21 08/27/21 08/27/21 00:36 00:36 00:36 WBC 9.1 K/mm3 K/mm3 (4.5-10.0) RBC 3.99 M/mm3 L M/mm3 (4.2-5.4) Hgb 11.7 g/dL L g/dL (12.0-15.0) Hct 35.3 % L % (37.0-47.0) MCV 88.5 fl fl (80-100) MCH 29.3 pg pg (26-34) MCHC 33.1 g/dl g/dl (32-36) RDW 13.5 % % (11.5-14.5) Plt Count 271 k/mm3 k/mm3 (150-375) MPV 11.1 fl H fl (7.4-10.4) Immature Gran % (Auto) 0.9 % H % (0-0.5) Neut % (Auto) 66.0 % % (45.5-73.1) Lymph % (Auto) 24.6 % % (18.3-44.2) [place] % (Auto) 7.2 % % (2.6-8.5) Eos % (Auto) 1.0 % % (0-4.4) Baso % (Auto) 0.3 % % (0.2-1.2) Lymph # (Auto) 2.23 K/mm3 K/mm3 (0.9-3.2) [place] # (Auto) 0.7 K/mm3 H K/mm3 (0.1-0.6) Eos # (Auto) 0.1 K/mm3 K/mm3 (0-0.3) Baso # (Auto) 0.0 K/mm3 K/mm3 (0.0-0.1) Abs Immat Gran (auto) 0.08 K/mm3 H K/mm3 (0.00-0.031) Absolute Neuts (auto) 6.0 K/mm3 K/mm3 (1.3-6.7) Absolute Nucleated RBC 0.0 K/mm3 K/mm3 (0.0-0.012) Nucleated RBC % 0.0 % % (0.0-0.2) RPR Pending Blood Type O Positive Antibody Screen Negative Patient hx anesthesia problems: none Family hx anesthesia problems: none Results Review: All pre-operative results and documents have been reviewed as part of the pre-operative evaluation. [facility] Family History Family History Father Patient's father is in good health, Onset Age: 59 Diabetes mellitus Grandparent Malignant neoplasm of prostate, Onset Age: 70 Family history of malignant neoplasm of breast, Onset Age: 60 Mother No problems noted. Other Family history of Alzheimer's disease Family history of malignant neoplasm of thyroid High cholesterol Thyroid cancer Social History Social History Smoking status: Never smoker Second hand tobacco smoke exposure: No Alcohol intake: never Substance use: never Gender identity (if verbalized by the patient): Female Spiritual care concerns: No Exam Day of Procedure 08/27/21 05:20
--- NOTE | 2021-08-27 07:08 | PM.IMHP ---
H&P: HPI History of Present Illness Date/Time: 08/27/21 07:08 31 y/o here for induction of labor. complicated by LGA. EFW 8lb4oz on 2009 [id number] 2013 Shoulder dystocia. 9lb2oz 2017 8lb8oz 2019 2lb8oz (26 week IUFD Trisomy) Chief Complaint: Term , LGA, Induction of labor Review of Systems Review of Systems: All systems reviewed & are unremarkable except as noted in HPI and below Constitutional: Constitutional: Reports as per HPI and Reports no additional constitutional complaints Eyes: Eyes: Reports as per HPI ENT: Reports system reviewed and no additional complaints, except as documented Cardiovascular: Cardiovascular: Reports as per HPI Respiratory: Respiratory: Reports as per HPI Gastrointestinal: Gastrointestinal: Reports as per HPI Genitourinary: Genitourinary: Reports no additional female genitourinary complaints Musculoskeletal: Musculoskeletal: Reports no additional musculoskeletal complaints Integumentary/Breasts: Skin/Breast: Reports system reviewed and no additional complaints, except as docu Neurologic: Reports system reviewed and no additional complaints, except as documented Psychiatric: Psychiatric: Reports no additional psychiatric complaints Endocrine: Endocrine: Reports no additional endocrine complaints Hematologic/Lymphatic: Hematologic/Lymphatic: Reports no additional hematologic/lymphatic complaints Allergic/Immunologic: Allergic/Immunologic: Reports no additional allergic/immunologic complaints [facility] Family History Family History Father Patient's father is in good health, Onset Age: 59 Diabetes mellitus Grandparent Malignant neoplasm of prostate, Onset Age: 70 Family history of malignant neoplasm of breast, Onset Age: 60 Mother No problems noted. Other Family history of Alzheimer's disease Family history of malignant neoplasm of thyroid High cholesterol Thyroid cancer Social History Social History Smoking status: Never smoker Second hand tobacco smoke exposure: No Alcohol intake: never Substance use: never Gender identity (if verbalized by the patient): Female Spiritual care concerns: No Meds Home Medications and Allergies Home Medications Medication Instructions Recorded Confirmed Type prenat.vits,malu,gxh-pgps-tzpqx 1 tablet PO DAILY 04/12/21 08/27/21 History Allergies Allergy/AdvReac Type Severity Reaction Status Date / Time Sulfa (Sulfonamide Allergy Unknown Rash Verified 08/27/21 00:28 Antibiotics) Vital Signs Vital Signs - 24 hr 08/27/21 00:23 08/27/21 00:30 08/27/21 00:41 Temperature 98.4 F Pulse Rate 80 86 Blood Pressure 128/79 118/75 Pulse Oximetry 08/27/21 00:45 08/27/21 01:00 08/27/21 01:15 Temperature Pulse Rate 82 83 84 Blood Pressure 113/74 120/74 121/74 Pulse Oximetry 08/27/21 01:30 08/27/21 01:45 08/27/21 02:00 Temperature Pulse Rate 71 76 74 Blood Pressure 103/53 L 100/50 L 104/52 L Pulse Oximetry 08/27/21 02:15 08/27/21 02:30 08/27/21 02:45 Temperature Pulse Rate 70 71 62 Blood Pressure 111/67 109/61 114/66 Pulse Oximetry 08/27/21 03:00 08/27/21 03:30 08/27/21 03:45 Temperature Pulse Rate 71 66 58 L Blood Pressure 114/67 108/56 L 106/46 L Pulse Oximetry 08/27/21 04:00 08/27/21 04:15 08/27/21 04:30 Temperature Pulse Rate 63 61 71 Blood Pressure 104/57 L 107/62 116/66 Pulse Oximetry 08/27/21 04:45 08/27/21 05:00 08/27/21 05:15 Temperature Pulse Rate 77 72 77 Blood Pressure 131/76 120/76 126/73 Pulse Oximetry 08/27/21 05:19 08/27/21 05:23 08/27/21 05:24 Temperature Pulse Rate 76 86 Blood Pressure 128/79 131/79 Pulse Oximetry 100 100 08/27/21 05:25 08/27/21 05:27 08/27/21 05:29 Temperature Pulse Rate 84 93 Blood Pressure 126/75 132/71 Pulse Oxi
--- NOTE | 2021-08-27 08:48 | PM.OBPRVD ---
OB - Delivery Note Procedure Delivery date: 08/27/21 Procedure: LGA Induction method: Per Pitocin Protocol Delivery monitor: External FHT and External Uterine Route of delivery: Episiotomy description: None Laceration Description: None Anesthesia type: Epidural Baby Date of : 08/27/21 Time of : 08:22 Weeks of gestation at delivery: 39 presentation: vertex position: Right Occiput Posterior (ELVIE at delivery of head.Spontaneous rotation to ROP for delivery of shoulders.) Cord Vessel Description: Delayed Cord Clamping Narrative: Cord gasses collected and handed off to staff. Mother and baby in stable condition.
[2021-08-27] MEDS: OXYTOCIN 30 UNITS/NS 500 ML 30 UNITS/500 ML BAG 125 UNITS IV CONT (09:09)
[2021-08-27] MEDS: IBUPROFEN 600 MG TABLET PO ×2 (14:05→19:37)
--- NOTE | 2021-08-27 14:41 | PC.NURSE ---
Patient transferred to post room #279 via wheelchair. Support person present. Oriented to unit, room, information board, rooming in, admission packet and security measures. Patient verbalizes understanding.
[2021-08-27] MEDS: ACETAMINOPHEN 325 MG TABLET 650 MG PO ×2 (16:29→23:00)
[2021-08-28 01:00] VITALS: BP 120/77; PULSE 60; RESP 16; TEMP 36.9; O2SAT 98
[2021-08-28] MEDS: IBUPROFEN 600 MG TABLET PO ×2 (01:21→11:25)
[2021-08-28 04:30] VITALS: BP 112/71; PULSE 66; RESP 16; TEMP 36.8; O2SAT 98
[2021-08-28] MEDS: ACETAMINOPHEN 325 MG TABLET 650 MG PO ×2 (04:35→11:24)
[2021-08-28 05:20] LABS: Hematocrit 32.8 % (37.0-47.0); Hemoglobin 10.8 g/dL (12.0-15.0)
--- NOTE | 2021-08-28 07:39 | WPDANLDPN2 ---
Anes-Prog Note L&D Date/Time: 08/28/21 07:39 Comfortable throughout: labor and delivery Neuraxial method: epidural Epidural/Spinal procedure site: clean & non-tender Neuro status: Neuro function grossly intact. Cardiovascular status: normal Respiratory status: normal Airway patency: baseline Mental status: baseline Post-Op hydration status: normal Vital Signs: Last Vital Signs Temp 36.8 C 08/28/21 04:30 Pulse 66 08/28/21 04:30 Resp 16 08/28/21 04:30 BP 112/71 08/28/21 04:30 Pulse Ox 98 08/28/21 04:30 Pain score (VAS): 2 I/O: Intake & Output 08/27/21 08/27/21 08/28/21 15:59 23:59 07:59 Intake Total 240 240 Balance 240 240 Post-procedural complaints: none Patient feedback: Patient satisfied with anesthetic care.
[2021-08-28 08:00] VITALS: BP 110/66; PULSE 74; RESP 18; TEMP 36.7; O2SAT 98
--- NOTE | 2021-08-28 08:00 | PC.NURSE ---
PT introductions made and plan of care discussed per post , pain management, breast feeding, daily care activities and pending discharge to home. PT and spouse both received instructions per one to one discussion, mom baby care guide and demonstrations this shift. No barriers to learning identified at this time. PT verbalized understanding of such care.
--- NOTE | 2021-08-28 08:50 | PM.OBPNVD ---
OB - PN: Subj Subjective Date/time seen: 08/28/21 08:50 Patient comments: no complaints baby status: doing well OB - PN: Obj Data Labs CBC & Chem 7: 08/28/21 04:34 Labs: Laboratory Results - last 24 hr 08/28/21 04:34 Hgb 10.8 L Hct 32.8 L OB - PN A/P Plan day: 1 Plan: routine care and discharge home Time Spent With Patient Time: Total time spent is greater than 50% in coordination of care (as documented) at patient's floor/unit and/or counseling patient: Review of Systems Review of Systems: All systems reviewed & are unremarkable except as noted in HPI and below Exam Const: General: cooperative, healthy appearing and comfortable
--- NOTE | 2021-08-28 08:52 | P.DS_ITS ---
DS: Admitting Diagnosis Discharge Date 08/28/21 Admitting Diagnosis IOL OB - DS: Summary OB Procedures : None OB Procedures Intrapartum: Spontaneous Vag Delivery OB Procedures: : None Time Spent with Patient Time attestation: Total time spent providing and/or coordinating discharge services: DS: Data Data Completed and Pending Labs on day of discharge: Labs from last 24 hours 08/28/21 04:34 Hgb 10.8 L Hct 32.8 L Discharge Plan Discharge Attending physician on discharge: Geovanna Corado Discharging Clinician: Sussy Barakat Patient Disposition: Home, Self-Care Activity: pelvic rest Diet: regular Patient Instructions: Antibiotic Form Stand Alone Forms: General Discharge Information Follow-up/Referrals: Renetta Tate CNM [Certified Nurse Ict Business Development Manager] - 4 Weeks Discharge Medications: Continued prenat.vits,malu,flc-okwr-lmveh Tablet 1 tablet PO DAILY RF: 0 Date of admission: 08/27/21 00:01 Primary Care Provider: Cathryn France Admitting Provider: Geovanna Corado Attending physician on admission: Geovanna Corado Condition: Stable
--- NOTE | 2021-08-28 11:24 | PC.NURSE ---
Patient was given the opportunity to view the discharge video Mother & Baby Care, The First Two Weeks and to ask questions. Patient declined viewing the video and has been given the mother/baby guide for home reference. PT received discharge instructions per protocol and verbalized understanding of such instructions.
[2021-08-28] MEDS: DOCUSATE SODIUM 100 MG CAPSULE PO (11:25)
[2021-08-28] MEDS: MULTIVIT/MIN/PREN/FOL AC/IRON TABLET 1 TAB PO (11:25)
--- NOTE | 2021-08-28 12:15 | PC.NURSE ---
PT discharged to home ambulatory accompanied by spouse and and taken to waiting car. Follow up appts confirmed
[2021-08-30 07:49] LABS: Rapid Plasma Reagin Non-Reactive (NonReactive)
[2021-08-30 08:27] VITALS: BP 116/71; PULSE 72; RESP 18; TEMP 36.9; O2SAT 98
== END 2021-08-28 12:15 | disposition home or self-care (01) | DRG 807 ==
LOC: ANHLDR 00:03 → ANHOB2 11:57
PROVIDERS: Advanced Practice Midwife; Admitting Provider Obstetrics & Gynecology; PCP Internal Medicine; Visit Provider Obstetrics & Gynecology
DX: O36.63X0 Maternal care for excessive fetal growth, third trimester, not applicable or unspecified (principal); Z37.0 Single live birth; Z3A.39 39 weeks gestation of pregnancy; O36.8330 Maternal care for abnormalities of the fetal heart rate or rhythm, third trimester, not applicable or unspecified
CPT/HCPCS: 36415; 85014; 85018; 85025; 86592; 86850; 86900; 86901; A9270; J2590; J2795; J7120

== ENCOUNTER 2021-12-07 11:18 | Outpatient (CLI) | payer BC, SELFPAY ==
[2021-12-07 12:20] LABS: Alanine Aminotransferase 32 U/L (14-59); Albumin Level 3.9 g/dL (3.4-5.0); Alkaline Phosphatase 138 U/L (46-116); Aspartate Amino Transferase 18 U/L (15-37); Bilirubin,Total 0.2 mg/dL (0.00-1.00); Blood Urea Nitrogen 14 mg/dL (7-18); Calcium 9.2 mg/dL (8.5-10.1); Carbon Dioxide 27 mmol/L (21-32); Estimated Glomerular Filt Rate > 60; Free T4 Free Thyroxine 0.79 ng/dL (0.76-1.46); Glucose 94 mg/dL (70-99); Thyroid Stimulating Hormone 0.77 uIU/mL (0.36-3.74); Total Protein 7.8 g/dL (6.4-8.2)
[2021-12-07 12:29] LABS: Anion Gap 10 mmol/L (8-16); Chloride 104 mmol/L (98-108); Osmolality Calculated 292 mOsm/kg (285-295); Sodium 141 mmol/L (136-145)
== END 2021-12-07 11:19 | disposition home or self-care (01) ==
LOC: CHSLAB 11:19
PROVIDERS: PCP Nurse Practitioner Family; Visit Provider Nurse Practitioner Family
DX: Z00.00 Encounter for general adult medical examination without abnormal findings (principal); R79.89 Other specified abnormal findings of blood chemistry
CPT/HCPCS: 36415; 80053; 84439; 84443

== ENCOUNTER 2022-04-05 13:19 | Outpatient (CLI) | payer BC, SELFPAY ==
--- NOTE | ~2022-04-05 | XR_ITS ---
EXAMINATION: XR finger 5th RT min 2V INDICATION: Right fifth finger pain, initial encounter TECHNIQUE: Three views of the right fifth finger are obtained. COMPARISON: None available FINDINGS: There is mild soft tissue swelling of the finger. Bone alignment is normal. No fracture is identified. The joint spaces are normal. IMPRESSION: 1. Soft tissue swelling of the fifth without acute osseous abnormality identified. Reviewed, dictated and finalized at location F. [employer]LE MECH[employer]IC IMPRESSION: 1. Soft tissue swelling of the fifth without acute osseous abnormality identifi ed.
== END 2022-04-05 13:20 | disposition home or self-care (01) ==
LOC: CHSIMG 13:22
PROVIDERS: PCP Nurse Practitioner Family; Visit Provider Nurse Practitioner Family
DX: M79.644 Pain in right finger(s) (principal); S69.90XA Unspecified injury of unspecified wrist, hand and finger(s), initial encounter
CPT/HCPCS: 73140

== ENCOUNTER 2023-04-24 09:39 | Outpatient (CLI) | payer BC, SELFPAY ==
[2023-04-24 10:30] VITALS: BP 104/65; PULSE 73
--- NOTE | 2023-04-24 10:39 | PC.NURSE ---
Makayla Barakat notified of adm c/o leaking and spotting on Monday. Negative ROM plus. Also informed that spouse reported relationship issues, will discuss at next visit in the office.
[2023-04-24 10:45] VITALS: BP 105/66; PULSE 73
== END 2023-04-24 11:02 | disposition home or self-care (01) ==
LOC: ANHOBOP 09:46 → ANHOBPP 09:46
PROVIDERS: PCP Nurse Practitioner Family; Visit Provider Advanced Practice Midwife
DX: O41.8X90 Other specified disorders of amniotic fluid and membranes, unspecified trimester, not applicable or unspecified (principal); Z3A.00 Weeks of gestation of pregnancy not specified
CPT/HCPCS: 59025; 84112; 99199

== ENCOUNTER 2023-07-28 03:31 | Inpatient (IN) | payer OTHER, SELFPAY ==
[2023-07-28] VITALS (10 sets, daily range): BP systolic 94–124; BP diastolic 52–88; PULSE 65–83; RESP 16; TEMP 36.5–37.1; O2SAT 97–98; BMI 28.5
--- NOTE | 2023-07-28 03:49 | WPDOBADMIT ---
Obstetrics - Admit Note Admission Note: record reviewed. No pertinent additions to the history and/or any subsequent changes in the physical findings that are not consistent with the expected course of the were found. Additions to the history and/or subsequent changes in the physical findings follow. Pt admitted in labor, exam per RN /-2, anticipate vaginal delivery
[2023-07-28 04:01] LABS: Basophils Percent Auto 0.3 % (0.2-1.2); Eosinophils Absolute Auto 0.1 K/mm3 (0-0.3); Eosinophils Percent Auto 0.7 % (0-4.4); Hematocrit 38.4 % (37.0-47.0); Hemoglobin 12.4 g/dL (12.0-15.0); Immature Granulocyte Absolute 0.08 K/mm3 (0.00-0.031); Immature Granulocyte Percent A 0.6 % (0-0.5); Lymphocytes Absolute Auto 2.19 K/mm3 (0.9-3.2); Lymphocytes Percent Auto 16.2 % (18.3-44.2); Mean Corpuscular HGB Conc 32.3 g/dl (32-36); Mean Corpuscular Hemoglobin 29.4 pg (26-34); Monocytes Absolute Auto 0.9 K/mm3 (0.1-0.6); Monocytes Percent Auto 6.8 % (2.6-8.5); Neutrophils Absolute Auto 10.2 K/mm3 (1.3-6.7); Neutrophils Percent Auto 75.4 % (45.5-73.1); Platelet Count Result 258 k/mm3 (150-375); Red Blood Count 4.22 M/mm3 (4.2-5.4); Red Cell Distribution Width 13.7 % (11.5-14.5); White Blood Count 13.5 K/mm3 (4.5-10.0)
--- NOTE | 2023-07-28 04:35 | P.PCNOB_ITS ---
OB - Vaginal Delivery Note Procedure Delivery date: 07/28/23 Delivery monitor: External FHT and External Uterine Route of delivery: Episiotomy description: None Laceration Description: None Specimen: No Quantitative Blood Loss (ml): 50 Anesthesia type: None Disposition: Floor Complications: No immediate complications [place] Baby Date of : 07/28/23 Time of : 04:25 Weeks of gestation at delivery: 39 gender: Female Weight (pounds): 8 Weight (ounces): 0 presentation: vertex position: Left Occiput Anterior Placenta delivery description: Spontaneous Cord Vessel Description: 3 Vessels, Clamped/Cut and Delayed Cord Clamping score one minute: 8 score five minutes: 9 Narrative: mother and baby skin to skin in stable condition
[2023-07-28] MEDS: IBUPROFEN 600 MG TABLET PO ×2 (06:40→15:34)
[2023-07-28] MEDS: WITCH HAZEL 40 PADS 1 PAD TOPICAL (06:41)
[2023-07-28] MEDS: BENZOCAINE 20% AER SPR (*SP) 56 GM CAN 1 SPRAY TOPICAL (06:41)
--- NOTE | 2023-07-28 07:54 | OBPPTRN ---
0701 Patient transferred to post room #286 via W/C. Support person present. Oriented to unit, room, information board, rooming in, admission packet and security measures. Patient verbalizes understanding.
[2023-07-28] MEDS: SERTRALINE HCL 50 MG TABLET PO (11:08)
[2023-07-28] MEDS: MULTIVIT/MIN/PREN/FOL AC/IRON TABLET 1 TAB PO (11:08)
[2023-07-28] MEDS: ACETAMINOPHEN 325 MG TABLET 650 MG PO ×2 (11:11→17:53)
--- NOTE | 2023-07-28 13:48 | PC.NURSE ---
[id number] Introductions were made, then consulted with patient to assess needs related to . Discussed with mother her?plans to feed?her infant and she is demonstrating a independent effective latch to the right breast without pain. Resources provided for inpatient and outpatient services with the feeding sheet and name written on the communication board. Mother voiced understanding of information and will call if there is a request for assistance. Reported to the Primary RN.
[2023-07-28 16:20] LABS: Rapid Plasma Reagin Non-Reactive (NonReactive)
[2023-07-28] MEDS: DOCUSATE SODIUM 100 MG CAPSULE PO (17:53)
[2023-07-29] MEDS: IBUPROFEN 600 MG TABLET PO (05:21)
[2023-07-29 05:35] LABS: Hematocrit 31.9 % (37.0-47.0); Hemoglobin 10.2 g/dL (12.0-15.0)
[2023-07-29 07:52] VITALS: BP 122/66; PULSE 75; RESP 18; TEMP 36.6; O2SAT 100
[2023-07-29] MEDS: MULTIVIT/MIN/PREN/FOL AC/IRON TABLET 1 TAB PO (07:56)
[2023-07-29] MEDS: DOCUSATE SODIUM 100 MG CAPSULE PO (07:56)
[2023-07-29] MEDS: SERTRALINE HCL 50 MG TABLET PO (07:56)
[2023-07-29] MEDS: WITCH HAZEL 40 PADS 1 PAD TOPICAL (07:57)
[2023-07-29] MEDS: ACETAMINOPHEN 325 MG TABLET 650 MG PO (08:00)
--- NOTE | 2023-07-29 09:14 | PM.OBPNVD ---
OB - PN: Subj Subjective Date/time seen: 07/29/23 09:14 Patient comments: no complaints, pain well controlled, incisional pain, tolerating diet and flatus present OB - PN: Obj Data Labs 07/29/23 05:24 Labs: Laboratory Results - last 24 hr 07/28/23 07/29/23 03:53 05:24 Hgb 10.2 L Hct 31.9 L RPR Non-reactive OB - PN A/P Plan day: 1 Plan: routine care Comments: No problems, routine care Time Spent With Patient Time: Total time spent is greater than 50% in coordination of care (as documented) at patient's floor/unit and/or counseling patient: Exam Const: General: comfortable, no acute distress and alert Resp: Effort & Inspection: normal respiratory effort Auscultation: no crackles, no rales and no rhonchi Cardio: Rate: regular rate Heart sounds: no click, no murmurs and no rubs GI: Inspection: non-distended GI Palp: No Tenderness to palpation present (GI) Auscultation: normal bowel sounds Other: Incision - CDI Extrem: General: normal to inspection, no pedal edema and no calf tenderness
--- NOTE | 2023-07-29 09:14 | PM.OBDSVD ---
DS: Admitting Diagnosis Discharge Date July 29, 2023 Admitting Diagnosis term DS: Discharge Diagnosis Discharge Diagnosis (1) Post term , delivered: Code(s): O48.0 - Post-term Status: Acute OB - DS: Summary OB Procedures : None OB Procedures Intrapartum: Spontaneous Vag Delivery OB Procedures: : None Peripartum Data Laceration Description: None Episiotomy description: None Time Spent with Patient Time attestation: Total time spent providing and/or coordinating discharge services: DS: Data Data Completed and Pending Labs on day of discharge: Labs from last 24 hours 07/29/23 07/28/23 05:24 03:53 Hgb 10.2 L Hct 31.9 L RPR Non-reactive Discharge Plan Discharge Discharging Clinician: Geovanna Corado Patient Disposition: Home, Self-Care Activity: pelvic rest Diet: regular Patient Instructions: Antibiotic Form Stand Alone Forms: General Discharge Information Follow-up/Referrals: Geovanna Corado MD [Physician] - Discharge Medications: Continued sertraline [Zoloft] 50 mg Tablet 50 mg PO DAILY Classic 28 mg iron- 800 mcg Tablet 1 tablet PO DAILY Discontinued aspirin 81 mg Capsule 81 mg PO DAILY Date of admission: 07/28/23 03:31 Primary Care Provider: Sharmaine Haines Admitting Provider: Geovanna Corado Attending physician on admission: Sussy Barakat Condition: Stable
[2023-07-31 10:31] VITALS: BP 126/80; PULSE 68; RESP 18; TEMP 36.6; O2SAT 99
== END 2023-07-29 11:25 | disposition home or self-care (01) | DRG 807 ==
LOC: ANHLDR 03:48 → ANHOB2 07-29 09:16 → ANHLDR 07-31 12:10 → ANHOB2 07-31 12:10
PROVIDERS: Advanced Practice Midwife; Admitting Provider Obstetrics & Gynecology; PCP Nurse Practitioner Family; Visit Provider Obstetrics & Gynecology
DX: O80 Encounter for full-term uncomplicated delivery (principal); Z37.0 Single live birth; Z3A.39 39 weeks gestation of pregnancy
CPT/HCPCS: 36415; 85014; 85018; 85025; 86592; 86850; 86900; 86901; A9270

== ENCOUNTER 2024-06-12 12:24 | Outpatient (CLI) | payer OTHER, SELFPAY ==
--- NOTE | ~2024-06-12 | US_ITS ---
EXAMINATION: US thyroid DATE: 06/12/2024 12:48 INDICATION: Nontoxic single thyroid nodule. TECHNIQUE: Multiple ultrasound images of the thyroid were obtained. COMPARISON: Ultrasound 04/10/2020, 01/17/2019 FINDINGS: The right thyroid lobe measures 5.5 x 2.0 x 2.0 cm. The left thyroid lobe measures 5.3 x 2.0 x 1.7 c m. In the right thyroid lobe, there is a 9 mm solid, hypoechoic, wider than tall nodule with lobular margin without echogenic foci (TI-RADS TR4). In the left thyroid lobe, there is a 7 mm mixed cystic and solid, very hypoechoic, wider than tall nodule with smooth margin without echogenic foci (TR4). I n the thyroid isthmus, there is a 12 mm solid, hypoechoic, wider than tall nodule with smooth margin without echogenic foci (TR4), stable from 04/10/2020. IMPRESSION: 1. Small thyroid nodules, likely not clinically significant. No follow-up is needed. Reviewed, dictated and finalized at location B. [employer] IMPRESSION: 1. Small thyroid nodules, likely not clinically significant. No follow-up is ne eded.
--- OUTSIDE RECORDS SUMMARY | 2024-06-14 00:20 | XMS_ITS | Data Portability ---
Author Organization [facility] [place] Address [address] [place] [address] [place] [address] Care Team Providers Care Sales Management Trainee Name Role Phone STANFORD BHAT Primary Care Provider Assessment Encounter Date Assessment Date Assessment LastModified by Organization Details LastModified Time 07/07/2023 07/07/2023 Patient is ___weeks . Discussed plan. Not available 07/07/2023 15:10:23 07/14/2023 07/14/2023 Patient is _37__weeks . Discussed plan. Not available 07/14/2023 10:23:25 07/21/2023 07/21/2023 Patient is _38__weeks . Discussed plan. [email or web address] Not available 07/21/2023 10:05:32 Plan of Treatment Reminders Order Date Submit Date Provider Last Modified By Organization Details Last Modified Time Details Appointments [facility] 2024 03:15P M Sussy Barakat CNM Not available Not available Not available Lab None recorded. Referral None recorded. Procedures None recorded. Surgeries None recorded. Imaging US, obstetric , follow-up 2023 024 [email or web address] [id number], [address], [place], [address], 06/23/2023 16:54:46 US, obstetric , biophysic al profile 2023 024 [email or web address] [email or web address], [address], [place], [address], 06/23/2023 16:54:46 US, doppler, umbilical artery velocimet ry 2023 024 [email or web address] [place] [address], [address], [place], [address], 06/23/2023 16:54:46 Medication Orders None recorded. Patient TargetsNo targets recorded. Patient InstructionsNo instructions recorded. Reason for Referral None Reported. Results Created Date Observation Date Name Description Value Unit Range Abnormal Flag Note LastModifiedBy Organization Detail LastModifiedTime 07/07/19 24 07/07/2023 CULTU RE: GROUP B STREP SCREE N, REFLE X SUSCE PTIBI LITY result report SEE RESULT S BELOW Test: Cultu re: Group B Strep , Refle x Susce ptibi lity ([facility]/ [facility] ) Speci men Sourc e: Vagin a/Rec fannie Speci men Type: Vagin al/Re ctal Speci men Date: 2023 3:04 PM Resul t Date: 2023 12:10 PM Resul t Statu s: Final resul t Abnor mal: No Resul ting Lab: [facility] [address] [facility] [address] Tel: CULTU RE ----- ----- ----- --- No Group B strep isola mary at 2 days (chris ctive broth enhan cemen t) Not Available [facility] (Lab) [address], [place], [address], 07/10/2023 13:14:23 06/23/19 24 06/23/2023 US, obste tric, follo w-up No observ ation record ed. [facility] [address], [place], [address], 06/23/2023 16:47:17 06/23/19 24 06/23/2023 US, obste tric, bioph ysica l profi le No observ ation record ed. [facility] [address], [place], [address], 06/23/2023 16:47:27 06/23/19 24 06/23/2023 US, doppl er, umbil ical arter y veloc imetr y No observ ation record ed. [facility] [address], [place], [address], 06/23/2023 16:47:40 06/23/19 24 06/23/2023 US, obste tric, follo w-up No observ ation record ed. adriana Tisha [address], [place], [address], 06/26/2023 12:58:12 07/03/19 24 07/03/2023 US, obste tric, follo w-up No observ ation record ed. [email or web address] [facility] [address] [place], [address], 07/03/2023 15:36:44 Result Notes None recorded. Problems Name Problem SNOMED Code Status Onset Date Resolution Date Notes Provider Name and Address Organization Details Recorded Time Miscarri age [id number] Completed 201211/09/2020 Spontane ous , unspecif ied, without mention of complica tion;Rec orded Elsewher e: No Locat ion: [facility] S ource: EHR Shot Blaster nicholas: N Marla ce ID: 0001 Ryne lable Time: 01:00:00 PM Mary Huerta [facility] 14:53:47 Normal pregnanc y in multigra alta [id number] Completed 201711/09/2020 Encounte r for suprvsn of normal pregnanc y, third trimeste r;Record ed Elsewher e: No [facility] our[facility]: EHR Shot Blaster nicholas: N Tasneemti ce ID: 0001 Ryne lable Time: 02:45:00 PM Mary wynn [facility] 14:54:18 Antenata l screenin g Completed 201711/09/2020 Encounte r for antenata l screenin g for nuchal transluc ency;Rec orded Elsewher e: No Locat ion: [facility] S ource: EHR Shot Blaster nicholas: N Tasneemti ce ID: 0001 Ryne lable Time: 03:00:00 PM Mary wynn [facility] 14:54:01 Pregnanc y test positive [id number] Completed 201211/09/2020 Pregnanc y examinat ion or test, positive result;R ecorded Elsewher e: No Locat ion: [facility] S ource: EHR Shot Blaster nicholas: N Tasneemti ce ID: 0001 Ryne lable Time: 11:15:00 AM Mary wynn [facility] 14:54:04 Secondar y amenorrh ea [id number] Completed 201711/09/2020 Secondar y amenorrh ea;Recor ded Elsewher e: No Locat ion: [facility] S ource: EHR Shot Blaster nicholas: N Tasneemti ce ID: 0001 Ryne lable Time: 09:30:00 AM Mary wynn [facility] 14:53:38 Pelvic and perineal pain [id number] Completed 201511/09/2020 Pelvic and perineal pain;Rec orded Elsewher e: No Locat ion: [facility] S ource: EHR Shot Blaster nicholas: N Practi ce ID: 0001 Ryne lable Time: 04:30:00 PM Mary wynn [facility] 14:54:08 Pregnanc y detectio n examinat ion Completed 201811/09/2020 Encounte r for pregnanc y test, result positive ;Recorde d Elsewher e: No Locat ion: [facility] S ource: EHR Shot Blaster nicholas: N Practi ce ID: 0001 Ryne lable Time: 02:00:00 PM Mary wynn, [facility] 14:54:38 Ultrason ography Completed 201211/09/2020 Antenata l screenin g for malforma tion using ultrason ics;Gerson rded Elsewher e: No Locat ion: [facility] S ource: EHR Shot Blaster nicholas: N Practi ce ID: 0001 Ryne lable Time: 08:45:00 AM Mary wynn, [facility] 14:53:41 Congenit al malforma tion [id number] Completed 201211/09/2020 Antenata l screenin g for malforma tion using ultrason ics;Gerson rded Elsewher e: No Locat ion: [facility] S ource: EHR Shot Blaster nicholas: N Practi ce ID: 0001 Ryne lable Time: 08:45:00 AM Mary wynn, [facility] 14:54:09 Breast lump [id number] Completed 201511/09/2020 Unspecif ied lump in breast;R ecorded Elsewher e: No Locat ion: [facility] S ource: EHR Shot Blaster nicholas: N Practi ce ID: 0001 Ryne lable Time: 02:02:10 PM Mary wynn, [facility] 1 14:54:42 Gestatio n period, 38 weeks [id number] Completed 201711/09/2020 38 weeks gestatio n of pregnanc y;Record ed Elsewher e: No Locat ion: [facility] S ource: EHR Shot Blaster nicholas: N Practi ce ID: 0001 Ryne lable Time: 02:30:00 PM Mary wynn, [facility] 14:53:35 Antenata l screenin g for malforma tion Completed 201911/09/2020 Encounte r for antenata l screenin g for malforma tions;Re corded Elsewher e: No [facility] S ource: EHR Shot Blaster nicholas: N Practi ce ID: 0001 Ryne lable Time: 04:45:00 PM Mary wynn, [facility] 14:54:33 Speciali zed medical examinat ion Completed 201411/09/2020 Other specifie d chlamydi al diseases ;Recorde d Elsewher e: No Locat ion: [facility] S ource: EHR Shot Blaster nicholas: N Practi ce ID: 0001 Ryne lable Time: 03:45:00 PM Mary Huerta [facility], [facility] 14:54:[address] Concept Completed 201811/09/2020 Encntr for mrb engineer exam (general ) (routine ) w/o abn findings ;Recorde d Elsewher e: No Locat ion: [facility] S ource: EHR Shot Blaster nicholas: N Practi ce ID: 0001 Ryne lable Time: 01:00:00 PM Mary wynn [facility] 14:54:14 Syphilis test finding [id number] Completed 201711/09/2020 Encntr screen for infectio ns w sexl mode of transmis s;Record ed Elsewher e: No Locat ion: [facility] S ource: EHR Shot Blaster nicholas: N Practi ce ID: 0001 Ryne lable Time: 09:30:00 AM Mary wynn, [facility] 14:54:17 Venereal disease screenin g Completed 201411/09/2020 Screenin g examinat ion for venereal disease; Recorded Elsewher e: No Locat ion: [facility] no[facility] S ource: EHR Shot Blaster nicholas: N Tasneemti ce ID: 0001 Ryne lable Time: 03:45:00 PM Mary wynn [facility] 14:53:44 Single live [id number] Completed 201711/09/2020 Single live ;Re corded Elsewher e: No Locat ion: [facility] S ource: EHR Shot Blaster nicholas: N Tasneemti ce ID: 0001 Ryne lable Time: 02:00:00 PM Mary wynn [facility] 14:53:43 Speciali zed medical examinat ion Completed 201111/09/2020 Gynecolo gical Examinat ion;Gerson rded Elsewher e: No [facility] N Tasneemti ce ID: 0001 Ryne lable Time: 10:30:00 AM Mary wynn [facility] 14:54:22 Body mass index 25-29 - overweig ht [id number] Completed 201511/09/2020 Body mass index (BMI) 26.0-26. 9, adult;Re corded Elsewher e: No Locat ion: [facility] S ource: EHR Shot Blaster nicholas: N Tasneemti ce ID: 0001 Ryne lable Time: 04:00:00 PM Mary wynn [facility] 14:53:40 Dyspareu rock [id number] Completed 201511/09/2020 Dyspareu rock;Gerson rded Elsewher e: No Locat ion: [facility] S our[facility]: [facility]: N Tasneemti ce ID: 0001 Ryne lable Time: 04:30:00 PM Mary wynn [facility] 06/21/202 1 14:54:31 Screenin g for malignan t neoplasm of cervix Completed 201111/09/2020 Screenin g for malignan t neoplasm s of the cervix;R ecorded Elsewher e: No Locat ion: [facility] no[facility] S ource: EHR Shot Blaster nicholas: N Tasneemti ce ID: 0001 Ryne lable Time: 10:30:00 AM Mary Huerta [facility] 1 14:53:46 Lochia finding Completed 201911/09/2020 Encounte r for routine postpart um follow-u p;Record ed Elsewher e: No Locat ion: [facility] nobles [facility] S ource: EHR Shot Blaster nicholas: N Practi ce ID: 0001 Ryne lable Time: 03:15:00 PM Mary wynn, [facility] 1 14:54:15 Known OR suspecte d abnormal ity affectin g manageme nt of mother Completed 201211/09/2020 Unspecif ied suspecte d abnormal ity, affectin g manageme nt of mother, unspecif ied as to episode of care;Rec orded Elsewher e: No Locat ion: [facility] no[facility] S ource: EHR Shot Blaster nicholas: N Practi ce ID: 0001 Ryne lable Time: 11:00:00 AM Mary Huerta [facility] 1 14:54:28 Removal of intraute rine device Completed 201511/09/2020 Encounte r for removal of intraute rine contrace ptive device;R ecorded Elsewher e: No Locat ion: [facility] no[facility] S ource: EHR Shot Blaster nicholas: N Practi ce ID: 0001 Ryne lable Time: 05:15:00 PM Mary wynn [facility] 1 14:54:30 Routine antenata l care Completed 201211/09/2020 Supervis ion of other normal pregnanc y;Record ed Elsewher e: No [facility]: EHR Shot Blaster nicholas: N Practi ce ID: 0001 Ryne lable Time: 11:15:00 AM Mary wynn [facility] 14:53:33 Pregnanc y test negative [id number] Completed 201211/09/2020 Pregnanc y examinat ion or test, negative result;R ecorded Elsewher e: No Locat ion: [facility] S our[facility]: [facility]: N Practi ce ID: 0001 Ryne lable Time: 01:45:00 PM Mary Huerta [facility], [facility] 14:54:05 Female genital organ symptoms [id number] Completed 201011/09/2020 Unspecif ied symptom associat ed with female genital organs;R ecorded Elsewher e: No Locat ion: [facility] S ource: [facility]: N Tasneemti ce ID: 0001 Ryne lable Time: 01:00:00 PM Mary wynn, [facility] 14:53:50 Contrace ption care Completed 201411/09/2020 Counseli ng and initiati on of contrace ptive method;R ecorded Elsewher e: No Locat ion: [facility] S ource: EHR Shot Blaster nicholas: N Practi ce ID: 0001 Ryne lable Time: 03:45:00 PM Mary wynn, [facility] 1 14:54:21 Uses IUD (intraut erine device) contrace ption [id number] Completed 201311/09/2020 Surveill ance of intraute rine contrace ptive device;R ecorded Elsewher e: No Locat ion: [facility] S ource: EHR Shot Blaster nicholas: N Practi ce ID: 0001 Ryne lable Time: 02:00:00 PM Mary wynn, [facility] 14:54:11 Postpart um care Completed 201311/09/2020 Post Followup ;Recorde d Elsewher e: No Locat ion: [facility]dante giul[facility] S ource: EHR Shot Blaster nicholas: N Practi ce ID: 0001 Ryne lable Time: 03:45:00 PM Mary wynn, [facility] 14:53:32 Uterine size for dates discrepa ncy Completed 201711/09/2020 Uterine size-crescencio e discrepa ncy, third trimeste r;Record ed Elsewher e: No [facility] S ource: EHR Shot Blaster nicholas: N Practi ce ID: 0001 Ryne lable Time: 02:30:00 PM Mary wynn, [facility] 14:53:58 Insertio n of intraute rine contrace ptive device Completed 201311/09/2020 INSERTIO N OF IUD;Gerson rded Elsewher e: No Locat ion: [facility]dante giul[facility] S ource: EHR Shot Blaster nicholas: N Practi ce ID: 0001 Ryne lable Time: 01:00:00 PM Mary wynn, [facility] 14:54:[address] Concept Completed 201811/09/2020 Encntr for general adult medical exam w/o abnormal findings ;Recorde d Elsewher e: No Locat ion: [facility]ante giul[facility] S ource: EHR Shot Blaster nicholas: N Practi ce ID: 0001 Ryne lable Time: 01:00:00 PM Mary wynn [facility] 14:54:12 Amenorrh ea [id number] Completed 201211/09/2020 Absence of menstrua tion;Rec orded Elsewher e: No [facility] S ource: EHR Shot Blaster nicholas: N Practi ce ID: 0001 Ryne lable Time: 11:15:00 AM Mary wynn [facility] 14:53:36 Infectio n screenin g Completed 201711/09/2020 Encounte r for screenin g for oth infec/pa rastc diseases ;Recorde d Elsewher e: No [facility] S [facility]ce: EHR Shot Blaster nicholas: N Practi ce ID: 0001 Ryne lable Time: 09:30:00 AM Mary wynn [facility] 1 14:54:02 Finding of regulari ty of menstrua l cycle Completed 201611/09/2020 Irregula r bleeding ;Recorde d Elsewher e: No Locat ion: [facility] S ource: EHR Shot Blaster nicholas: N Practi ce ID: 0001 Ryne lable Time: 09:30:00 AM Mary wynn, [facility] 1 14:53:55 Gestatio n period, 8 weeks [id number] Completed 201811/09/2020 8 weeks gestatio n of pregnanc y;Record ed Elsewher e: No Locat ion: [facility] S ource: EHR Shot Blaster nicholas: N Practi ce ID: 0001 Ryne lable Time: 01:00:00 PM Mary wynn [facility] 14:54:07 Hemorrha gic complica tion of pregnanc y [id number] Completed 201811/09/2020 Hemorrha ge in early pregnanc y, unspecif ied;Gerson rded Elsewher e: No Locat ion: [facility] S ource: EHR Shot Blaster nicholas: N Practi ce ID: 0001 Ryne lable Time: 02:00:00 PM Mary wynn [facility] 14:53:29 Vaginiti s and vulvovag initis Completed 201011/09/2020 Vaginiti s;Record ed Elsewher e: No Locat ion: [facility] nobles [facility] S ource: EHR Shot Blaster nicholas: N Practi ce ID: 0001 Ryne lable Time: 01:00:00 PM Mary wynn, [facility] 14:53:48 Abdomina l pain [id number] Completed 201011/09/2020 Abdomina l pain, unspecif ied site;Pra ctice ID: 0001 Mary wynn, [facility] 14:53:53 Threaten ed miscarri age [id number] Completed 201211/09/2020 Threaten ed , antepart um;Pract ice ID: 0001 Mary wynn [facility] 14:54:25 Delivery normal [id number] Completed 201311/09/2020 Normal delivery ;Practic e ID: 0001 Mary wynn, [facility] 14:54:19 Term pregnanc y delivere d [id number] Completed 201711/09/2020 Encounte r for full-ter m uncompli cated delivery ;Practic e ID: 0001 Mary Huerta kingsley, [facility] 14:53:56 Gestatio n period, 39 weeks [id number] Completed 201711/09/2020 39 weeks gestatio n of pregnanc y;Practi ce ID: 0001 Mary Huerta kingsley, [facility] 14:54:[address] Concept Completed 201911/09/2020 Maternal care for intraute rine , not applicab le or unsp;Pra ctice ID: 0001 Mary Bradley wynn [facility] 06/21/202 1 14:53:59 Retained portions of placenta AND/OR membrane s without hemorrha ge Completed 201911/09/2020 Retained portions of placenta and membrane s, w/o hemorrha ge;Pract ice ID: 0001 Mary Huerta null, [facility] 1 14:53:30 Pregnanc y [id number] Completed 202009/09/2021 Meryl Beth null, [facility] 4 12:54:43 Shoulder dystocia - delivere d [id number] Completed LGA baby. Jody Hickman null, [facility] 2 12:58:31 Past pregnanc y history of stillbir th 148825030 Completed 07/2019 at 26w. serial growth US.- Clarif ied with Dr Wilson and no antenata l testing necessar y since IUFD was likely d/t chromoso mal abnormal ity Jody Hickman hl null, [facility] 2 12:58:31 Past pregnanc y history of stillbir th [id number] Active 07/2019 at 26w. serial growth US.- Clarif ied with Dr Wilson and no antenata l testing necessar y since IUFD was likely d/t chromoso mal abnormal ity Jody Hickman null, [facility] 2 12:58:31 Large for gestatio n age fetus 244270248 Completed 2020 rpt @ 38wks Jody Hickman hl null, [facility] 2 12:58:31 Past pregnanc y history of shoulder dystocia 948574007 Active 2022 Calista Cedillo null, [facility] 3 18:05:11 Pregnanc y [id number] Completed 202207/31/2023 Meryl Beth kingsley, [facility] 4 12:54:43 Large for gestatio n age fetus 723718119 Completed shoulder dystocia , last 2021 10lbs without dystocia - Growth 3rd trimeste r ? Meryl wynn, [facility] 4 12:54:35 Past pregnanc y history of intraute rine [id number] 693946 Completed 07/2019 - no antenata l testing necessar y since IUFD was likely d/t chromoso mal abnormal ity, [facility], [facility] 4 12:54:35 Mixed anxiety and depressi ve disorder 408271934 Completed 05/02 Zoloft 25mg Bannerteresa Beth [facility] 4 12:54:35 Problem Notes None recorded. Procedures Surgical History Date Name Laterality Status Provider Name and Address Organization Details Recorded Time 3 Date of Last Pap Smear completed [facility] 12/28/2022 18:05:33 0 Dilation and Curettage completed [facility] 10/17/2019 08:28:39 9 biopsy of thyroid [facility] 08/25/2021 16:09:03 3 biopsy of breast completed Jenny Barrera [facility] 10/23/2019 15:00:58 Imaging Results Imaging Date Name Status LastModified by Organiz ation Details LastModified Time 06/23/2023 US, obstetric, follow-up completed [facility] [address], [place], [address], 06/23/2023 16:47:17 06/23/2023 US, obstetric, biophysical profile completed [facility] [address], [place], [address], 06/23/2023 16:47:27 06/23/2023 US, doppler, umbilical artery velocimetry completed [facility] [address], [place], [address], 06/23/2023 16:47:40 06/23/2023 US, obstetric, [facility] [address], [place], [address], 06/26/2023 12:58:12 07/03/2023 US, obstetric, follow-up completed [email or web address] [facility] [address] [place], [address], 07/03/2023 15:36:44 Procedure Notes None recorded. Medical Equipment None Reported. Allergies Allergen ID Allergen Name Allergen Category Reaction Reaction Severity Criticality Documentation Date Start Date Code Code System Note Provider Name and Address Organization Details Recorded Time 848 Substance with sulfonami de structure and antibacte rial mechanism of action (substanc e) medicatio n Not available Not available Not available 10/23/2019 41521 8003 SNOMED Jennystuart Barrera [place], [place] - [facility] 0 15:02:47 Medications Name Sig Start Date Stop Date Status Note LastModified by Organization Details LastModified Time kit car 01/21 completed Not Available Not Available Not Available kit carebox 02/05 completed Not Available Not Available Not Available ameda mis finesse 10/23 completed Not Available Not Available Not Available azithromy peg 250 mg tablet take 2 tablet (500MG) by oral route every day for 1 day then 1 tablet (250 mg) by oral route once daily for 4 days 03/02 completed Prescrib ed Elsewher e: No Locat ion: [facility] M odify By: omedical Encount er DateTime : 02/27/20 11 05:44:15 PM Not Available Not Available Not Available Necon 1/35 (28) 1 mg-35 mcg tablet take 1 tablet by oral route every day for 28 days 09/22 completed Prescrib ed Elsewher e: No Locat ion: [facility]acyrefugiojorge nobles [facility] odify By: blanquita sanchez DateTime : 08/27/19 17 09:30:00 AM Not Available Not Available Not Available sertralin e 100 mg tablet Take 1 tablet every day by oral route. active Not Available Not Available No t Available ciclopiro x 8 % topical solution 12/15 completed Not Available Not Available Not Available sertralin e 25 mg tablet 07/14 completed Not Available Not Available Not Available sertralin e 50 mg tablet Take 1 tablet every day by oral route. active Not Available Not Available No t Available Ortho Tri-Cycle n (28) 0.18 mg(7)/0.2 15 mg(7)/0.2 5 mg(7)-35 mcg tablet take 1 tablet by oral route every day 08/26 completed Prescrib ed Elsewher e: No Locat ion: Gracyrefugiojorge nobles [facility] odify By: blanquita Nobles ncounter DateTime : 08/07/19 16 01:59:41 PM Not Available Not Available Not Available amoxicill in 875 mg-potass ium clavulana te 125 mg tablet 10/23 completed Not Available Not Available Not Available NuvaRing 0.12 mg-0.015 mg/24 hr vaginal insert 1 vaginal ring by vaginal route every month leave in place for 3 weeks, remove for 1 week 10/23 completed Not Available Not Available Not Available Sprintec (28) 0.25 mg-35 mcg tablet Take 1 tablet every day by oral route. 11/09 completed Not Available Not Available Not Available Mahi 0.35 mg tablet take 1 tablet by oral route every day 09/04 completed Prescrib ed Elsewher e: No Locat ion: [facility] odify By: blanquita Nobles ncounter DateTime : 08/24/19 19 10:11:00 AM Not Available Not Available Not Available active Not Available Not Avai lable Not Available SYSTEMS COORDINATOR-PNV-DH A 28 mg iron-1 mg-200 mg capsule take 1 capsule by oral route every day 11/09 completed Prescrib ed Elsewher e: No Locat ion: [facility] odify By: amkderick Nobles ncounter DateTime : 09/19/19 18 10:45:00 AM Not Available Not Available Not Available 19 29 mg iron-1 mg chewable tablet chew 1 tablet by oral route every day 07/26 completed Prescrib ed Elsewher e: No Locat ion: [facility] odify By: lalito pateli Enco unter DateTime : 10/30/19 13 11:15:00 AM Not Available Not Available Not Available Blisovi Fe 1.5/30 (28) 1.5 mg-30 mcg (21)/75 mg (7) tablet TAKE ONE TABLET BY MOUTH DAILY 12/15 completed Not Available Not Available Not Available Vienva 0.1 mg-20 mcg tablet take 1 tablet by oral route every day 10/23 completed Not Available Not Available Not Available Beulah Fortune Breast Pump 12/28 completed Not Available Not Available Not Available Vitals Date Recorded Body height Body mass index (BMI) Body weight Systolic blood pressure Diastolic blood pressure Provider Name and Address Organization Details Last Updated DateTime 06/23/2023 185.42 cm 28.5 kg/m2 91459.95 192 g 109 mm[Hg] 74 mm[Hg] Calista Cedillo [facility] 4 12:44:51 Date Recorded Body height Body mass index (BMI) Body weight Systolic blood pressure Diastolic blood pressure Provider Name and Address Organization Details Last Updated DateTime 07/07/2023 185.42 cm 28.6 kg/m2 08616.54 429 g 120 mm[Hg] 75 mm[Hg] Calista Cedillo [facility] 4 15:10:48 Date Recorded Body height Body mass index (BMI) Body weight Systolic blood pressure Diastolic blood pressure Provider Name and Address Organization Details Last Updated DateTime 07/14/2023 185.42 cm 29.2 kg/m2 936267.9 1377 g 117 mm[Hg] 71 mm[Hg] [facility] 09:52:29 Date Recorded Body height Body mass index (BMI) Body weight Systolic blood pressure Diastolic blood pressure Provider Name and Address Organization Details Last Updated DateTime 07/21/2023 185.42 cm 28.9 kg/m2 48514.72 903 g 120 mm[Hg] 76 mm[Hg] Calistabhavya Cedillo [facility] 4 09:49:35 Date Recorded Body height Body mass index (BMI) Body weight Systolic blood pressure Diastolic blood pressure Provider Name and Address Organization Details Last Updated DateTime 08/23/2023 185.42 cm 26.8 kg/m2 81708.25 g 114 mm[Hg] 75 mm[Hg] Calista [facility] 4 09:38:28 Social History Question Answer Notes LastModified by Organizat ion Details LastModified Time Tobacco Smoking Status Never Smoker Piedad Perkins [email or web address] 06/09/2023 13:54:02 Do You Have An Advance Directive? No Information n ot available 12/15/2020 What Is Your Level Of Alcohol Consumption? None [id number] Information not available 03/24/2020 Are You Blind Or Do You Have Difficulty Seeing? No Information n ot available 02/19/2021 What Is Your Level Of Caffeine Consumption? Occasional [email or web address] Information not available 03/22/2023 How Much Tobacco Do You Chew? None Information not available 12/15/2020 In The 14 Days Before Symptom Onset, Have You Had Close Contact With A Laboratory-confirm ed COVID-19 While That Case Was Ill? No Information n ot available 12/15/2020 In The 14 Days Before Symptom Onset, Have You Had Close Contact With A Person Who Is Under Investigation For COVID-19 While That Person Was Ill? No Information not available 12/15/2020 Have You Been To An Area Known To Be High Risk For COVID-19? No Information not available 12/15/2020 Are You Deaf Or Do You Have Serious Difficulty Hearing? No Information not available 12/15/2020 What Type Of Diet Are You Following? REGULAR Information n ot available 12/15/2020 What Is The Highest Grade Or Level Of School You Have Completed Or The Highest Degree You Have Received? [id number] Information not available 12/15/2020 What Is Your Occupation? Homemaker Information not available 12/15/2020 Are There Any Guns Present In Your Home? No Information not available 12/15/2020 Do You Use Protection During Sex? No [email or web address] Information not available 01/21/2021 Do You Use Your Seat Belt Or Car Seat Routinely? Yes Information not available 12/15/2020 Do You Have Smoke And Carbon Monoxide Detectors In Your Home? Yes Information not available 12/15/2020 How Much Tobacco Do You Smoke? No Information not available 12/15/2020 Do You Feel Stressed (tense, Restless, Nervous, Or Anxious, Or Unable To Sleep At Night)? [id number] [email or web address] Information not available 03/22/2023 Do You Use Any Illicit Or Recreational Drugs? No Information not available 12/15/2020 Do You Use Sunscreen Routinely? Yes Information not available 12/15/2020 Have You Used IV Drugs? No Information not available 12/15/2020 Sex: Unknown Functional Status Question Answer Note LastModified by Organizat ion Details LastModified Time Do you have difficulty walking or climbing stairs? No [email or web address] Information not available 06/09/2023 Are you able to walk? YESWOREST Information not available 12/15/2020 Are you able to care for yourself? Yes [email or web address] Information not available 06/09/2023 Do you have difficulty dressing or bathing? No [email or web address] Information not available 06/09/2023 What is your exercise level? Occasional [id number] Information not available 03/24/2020 Mental Status None recorded. Family History Relationship Description Onset Age of this Age Resolved Age Notes LastModified by Organization Details LastModified Time Maternal Grandmother Diabetes mellitus [email or web address] Not available 2019 15:01:49 Paternal Grandmother Family history of breast cancer [email or web address] Not available 2023 09:24:34 Maternal Grandfather Family history of malignant neoplasm of lung [email or web address] Not available 2023 09:24:34 Mother Malignant tumor of thyroid gland [email or web address] Not available 2023 09:24:34 Mother Disorder of thyroid gland Not available 2020 11:55:41 Medical History Condition Response Allergies (Food, seasonal, environmental ) N Other Y Drug/Latex Allergies/Reactions N Blood Transfusion N Breast Cancer N Dermatologic Disorders N Lung Disease N Defects or Inherited Disease N Breast Problem N Gestational Diabetes N Hematologic disorders N Anesthesia Complications N History of STI N Deep Vein Thrombosis N Polycystic ovary syndrome N Anxiety Disorder Y Autoimmune disease N Arthritis N Polyps N Infertility N Acid Reflux (GERD) N History of abnormal pap N Cancer N Varicosities N Stroke N Neurologic/Epilepsy N Endometriosis N High Cholesterol N Fibromyalgia N Headaches N Kidney Disease N Heart Problems N Thyroid Problems Y Kidney or Bladder Problems N GI Problems N Eating Disorder N Anemia N Art (IVF or FET) N Psychiatric Illness N Ovarian Cancer N Diabetes N Pulmonary (TB, Asthma) N Hepatitis/Liver Disease N No Past Medical History N Eczema N Urinary Tract Infection N Abuse/Domestic Violence N Asthma N Trauma/Violence N Depression/ depression N Heart Disease N Pre-Eclampsia N Hypertension N Osteoporosis N Thrombophilias N Gynecological History Statement/Question Response Abnormal Pap N Date of LMP 10/28/2022 On BCP's at Conception? N N Was last menstrual period normal Y STIs/STDs N HPV Vaccine N Duration of Flow (days) 5 Current Control Method None Age at First Child 19 Frequency of Cycle (Q days) 28 Sexually Active? Y None Age of first menstrual cycle 14 Date of Last Pap Smear 12/28/2022 Sexual Problems? N Desired Control Method LMP Approximate N Obstetrics History GPAL:G 7 P 5 1 1 6 Type Value Full Term 5 Spontaneous 1 Premature 1 Living 6 Total 7 Past Encounters Encounter ID Performer Location Encounter Start Date Encounter Closed Date Diagnosis/Indication Diagnosis SNOMED-CT Code Diagnosis ICD10 Code Diagnosis Note [id number] Renetta Tate [facility] [address] [address] 10/24/2019 16:12:22 11/13/2019 11:22:20 Surveillance of oral contraception 044891242 Z30.41 Pt had 3 weeks of bleeding with her last pack of pills. She was on necon in 2017 and had great success with that pill and would like to switch. Necon is no longer available. Will switch to comperable pill. Pt will RTC in 3 months for a med check. Gynecologi c examination 41366697 Z01.419 Take Calcium with Vitamin D 1200mg daily if not receiving in daily diet. It is strongly advised to have an annual flu shot and up can obtain at most pharmacies . If you have not had a TDap shot in the last 10 years you should obtain one as well. Discussed with patient & provided with informatio n regarding Gardisil vaccine to prevent the 4 strains for HPV that cause cervical cancer if under age 26. Encourage safe sexual practices, to use condoms and limit partners if not already in a monogamous relationsh ip. Do monthly self breast exams. Have mammogram yearly or every other year depending on family history. BRCA testing is now available for patients with strong genetic history of female cancer. If interested contact the office. Engage in daily exercise of low impact aerobic exercise 45-60 minutes 4-5 times weekly. Avoid tobacco and illicit drugs as well as using moderation with alcohol intake less than 1-2 8 oz beverages daily. This lifestyle behavior pattern will lead to less health conditions and longer life span. If BMI greater than 25 weight watchers or dietary consult advised. Patient received above instructio ns, and questions have been answered. If you have any questions please call or respond to this email. Patient was made aware of the patient portal and may obtain a paper copy of today's plan if desired. [id number] Renetta Tate [facility] [address] [address] 02/06/2020 12:35:54 02/06/2020 18:24:37 Contraception care management 801726465 Z30.9 If thyroid abnormal pt would like to treat that and continue on the pill she has taken since the btb seemed to be improving. If her thyroid is normal she would like to switch to a different pill to hopefully help with mood. We could consider ortho cyclen, mononessa, or sprintec. [id number] Renetta Cortezduarte [facility] [address] [address] 12/15/2020 14:50:52 12/15/2020 15:56:24 Single live 719386068 Z37.0 Gynecologi c examination 26876170 Z01.419 Z11.51 Take Calcium with Vitamin D 1200mg daily if not receiving in daily diet. It is strongly advised to have an annual flu shot and up can obtain at most pharmacies . If you have not had a TDap shot in the last 10 years you should obtain one as well. Discussed with patient & provided with informatio n regarding Gardisil vaccine to prevent the 4 strains for HPV that cause cervical cancer if under age 26. Encourage safe sexual practices, to use condoms and limit partners if not already in a monogamous relationsh ip. Do monthly self breast exams. Have mammogram yearly or every other year depending on family history. BRCA testing is now available for patients with strong genetic history of female cancer. If interested contact the office. Engage in daily exercise of low impact aerobic exercise 45-60 minutes 4-5 times weekly. Avoid tobacco and illicit drugs as well as using moderation with alcohol intake less than 1-2 8 oz beverages daily. This lifestyle behavior pattern will lead to less health conditions and longer life span. If BMI greater than 25 weight watchers or dietary consult advised.No t interested in control. Considerin g . Encouraged vitamin with dha and folic acid. Patient received above instructio ns, and questions have been answered. If you have any questions please call or respond to this email. Patient was made aware of the patient portal and may obtain a paper copy of today's plan if desired. [id number] Renetta Tate [facility] [address] [address] 01/21/2021 15:55:24 01/25/2021 22:23:56 test positive 431246087 Z32.01 Risk factors addressed: Tobacco Cessation, Safe Sexual Practices, environmen rony, work hazards, travel restrictio ns, seat belt use.Eat a health well balanced diet, avoid alcohol, tobacco, and street drugs.Enga ge in daily low impact exercise, avoid temperatur e extremes, and cat, rodent, and bird feces.Avoi d travel to areas where zika virus is a concern.Of fered cf/sma/nip t. Declines at this time. Handouts given and discussed with patient.Ch ildbirth classes recommende d.New OB sheet given.If previous , counseling .Pt verbalizes that she understand s the importance of above instructio ns.All questions were answered.P atient reminded to have annual well woman examinatio n and address [facility] . [id number] [facility] [address],[place] [address] 01/21/2021 15:54:56 01/21/2021 17:08:58 [id number] Lou Ramos [facility] [address],[place] [address] 02/19/2021 11:14:51 02/19/2021 12:16:35 care: poor obstetric history 630240752 O09.291 Z34.91 Z3A.12 [id number] Abundio Corado MD [facility] [address],[place] [address] 02/19/2021 11:18:04 02/19/2021 13:09:48 Routine care 011459786 Z34.90 [id number] Safia Wilson MD [facility] [address],[place] [address] 03/19/2021 11:55:28 03/19/2021 12:43:40 Past history of stillbirth 100377026 Z87.59 Routine an tenatal care 139356622 Z34.82 [id number] Renetta Cortezduarte [facility] [address],[place] [address] 04/19/2021 14:31:22 04/19/2021 18:17:56 Routine care 159959734 Z34.92 [id number] Sue Hernandez [facility] [address],[place] [address] 04/19/2021 14:30:58 04/19/2021 16:02:46 screening for malformation 501905293 Z36.3 [id number] Renetta Tate [facility] [address],[place] [address] 05/20/2021 11:19:21 05/20/2021 14:33:31 Routine care 169366355 Z34.92 [id number] [facility] [address],[place] [address] 05/20/2021 11:18:25 05/20/2021 12:18:11 screening 865379453 Z36.2 [id number] [facility] [address],[place] [address] 06/17/2021 10:20:53 06/17/2021 12:31:34 Routine care 687722174 Z34.92 [id number] [facility] [address],[place] [address] 07/01/2021 11:46:16 07/02/2021 15:01:09 Routine care 161775328 Z34.92 [id number] [facility] [address],[place] [address] 07/01/2021 12:12:45 07/01/2021 12:38:41 Spotting per vagina in 436554152 O26.853 Z3A.30 [id number] Abundio Corado MD [facility] [address],[place] [address] 07/12/2021 11:25:00 07/12/2021 13:09:00 Routine care 908208451 Z34.90 [id number] [facility] [address],[place] [address] 07/12/2021 11:26:12 07/12/2021 11:56:35 Large for gestation age fetus 451081821 O36.63X0 Z3A.32 [id number] Safia Wilson MD [facility] [address],[place] [address] 07/27/2021 09:42:57 07/27/2021 10:13:13 Large for gestation age fetus 116507687 O36.63X1 Shoulder d ystocia with problem 490341580 O66.0 [id number] Safia Wilson MD [facility] [address],[place] [address] 08/09/2021 15:04:53 08/09/2021 18:15:25 Shoulder dystocia with problem 011752389 O66.0 Large for gestation age fetus 878536156 O36.63X1 [id number] Sue Hernandez [facility] [address],[place] [address] 08/17/2021 15:46:29 08/17/2021 17:02:38 Large for gestation age fetus 509159792 O36.63X0 Z3A.37 [id number] Safia Wilson MD [facility] [address],[place] [address] 08/17/2021 15:46:59 08/17/2021 17:03:19 Large for gestation age fetus 443276503 O36.63X0 Z3A.37 [id number] [facility] [address],[place] [address] 08/25/2021 15:42:08 08/25/2021 16:30:20 Routine care 280712167 Z34.93 [id number] Renetta Tate [facility] [address],[place] [address] 09/23/2021 10:14:30 09/23/2021 10:46:13 state 62233231 Z39.2 Continue to watch for signs/symp toms of post depression . Return one year from last pap smear for a well woman exam. Due at the end of November. Declines contracept ion. planning vasectomy. Patient received above instructio ns, and questions have been answered. If you have any questions please call or respond to this email. Patient was made aware of the patient portal and may obtain a paper copy of today's plan if desired [id number] Lou Ramos [facility] [address],[place] [address] 12/28/2022 16:57:24 12/28/2022 17:57:42 [id number] [facility] [address],[place] [address] 12/28/2022 16:57:45 12/29/2022 16:30:05 Amenorrhea 97981030 N91.2 +UPT [id number] Lou Ramos [facility] [address],[place] [address] 01/25/2023 13:28:18 01/25/2023 14:04:36 screening 363048555 Z36.82 [id number] [facility] [address],[place] [address] 01/25/2023 13:29:05 01/25/2023 14:47:24 Gestation period, 12 weeks 18329547 Z3A.12 Routine an tenatal care 069949607 Z34.93 [id number] [facility] [address],[place] [address] 02/22/2023 14:00:26 02/22/2023 15:15:10 Routine care 389239249 Z34.93 [id number] [facility] [address],[place] [address] 03/22/2023 10:45:19 03/22/2023 12:05:35 screening for malformation 269145115 Z36.3 Z3A.20 [id number] [facility] [address],[place] [address] 03/22/2023 10:45:45 03/22/2023 13:38:57 [id number] [facility] [address] [place] [address] 04/21/2023 09:48:20 04/21/2023 10:09:24 Routine care 135732601 Z34.93 [id number] Susanne Fernandez [facility] [address] [place] [address] 05/02/2023 14:21:50 05/02/2023 17:59:31 Routine care 130211857 Z34.90 Pt here to doppler heart tones due to decreased movement and history of IUFD. heart tones 138-152 and movement noted while listening to heart tones. Pt did not feel movement. Pt reassured that 's position is likely causing movement to not be felt. Pt informed irregular movement can still occur at her gestationa l age of 26 weeks and instructed on ways to help increase movement. Pt verbalized understand ing and states she has been having a sugary snack to help increase movement but she is concerned because she felt movement regularly until recently. Pt informed position likely changed and fetus is still small enough that some movements are not felt and experience d by her. Pt verbalized understand ing. Pt was upset and worried during the visit. When I questioned if the patient felt reassured, she began to cry. Pt states her mood has been different due to marital problems and she is concerned her stress and sadness are effecting the fetus. Pt offered support. Pt states she is safe and does not need resources, emergent and non-emerge nt, at this time. Pt states her and her spouse are attending marriage counseling and she is scheduled for her first individual counseling session this week. Pt states she is sad, worried, and not looking forward to family time and the holidays like she normally does due to the strain on their marriage. Pt's mood discussed. Pt's EPDS is 23. Pt denies thoughts and feelings of wanting to harm herself or others. Pt is open to discussing medication . Pt's symptoms and EPDS discussed with SP. SP recommends zoloft 25mg qday with follow up next week and an increase to zoloft 50mg qday if 25mg is ineffectiv e. Pt informed. Pt verbalized understand ing and would like to start zoloft. Prescripti on sent. Pt is scheduled with SP on 05/10/23 and will follow up during that time unless she experience s a change in symptoms prior to her appt and needs to call the office. Pt instructed to call mandy if she experience s a change in mood and/or symptoms and instructed on ER for eval if she experience s thoughts of wanting to harm herself or others. Pt verbalized understand ing. Pt will reach out if she needs additional resources. Susanne urban, [place] [id number] [facility] [address],[place] [address] 05/10/2023 11:50:43 05/10/2023 13:06:34 Uterine size for dates discrepancy 885571185 O26.842 Z3A.27 [id number] [facility] [address],[place] [address] 05/10/2023 11:51:06 05/10/2023 14:10:37 Routine care 818111831 Z34.93 [id number] [facility] [address],[place] [address] 05/26/2023 13:54:13 05/26/2023 14:50:17 Routine care 959562520 Z34.93 [id number] [facility] [address],[place] [address] 06/09/2023 13:51:17 06/09/2023 14:29:55 Routine care 734863920 Z34.93 [id number] [facility] [address],[place] [address] 06/23/2023 11:47:01 06/23/2023 12:45:56 Small for gestational age fetus 684796781 O36.5930 Z3A.34 [id number] [facility] [address],[place] [address] 06/23/2023 11:47:31 06/23/2023 13:53:16 Routine care 484866413 Z34.93 [id number] Abundio Corado MD [facility] [address],[place] [address] 07/07/2023 14:59:27 07/11/2023 08:37:35 Routine care 571260199 Z34.93 [id number] Sussy Barakat CN[facility] [address] [address] 07/14/2023 09:37:20 07/14/2023 10:26:32 Routine care 482271360 Z34.93 [id number] [facility] [address] [address] 07/21/2023 09:42:48 07/21/2023 10:08:07 Routine care 498437273 Z34.93 [id number] Calista Cedillo [facility] [address] [address] 08/23/2023 09:23:46 08/23/2023 09:55:46 care 569551300 Z39.2 normal pp exam f/u 6 mo wwe Health Concerns Section Related Observation LastModified by Organization Detai ls LastModified Time None Recorded Concern Status LastModified by Organization Details LastModified Time None Recorded Advance Directives Directive N: Payers Encounter Date Sequence Insurance Name Policy Number Policy Casas Covered Member ID Casas Member ID Guarantor Name 06/23/2023 1 [facility] Konrad Bartony [id number] FRANK Nicky Bartony 07/07/2023 1 [facility] ([facility] Konrad Bartony [id number] FRANK Nicky Bartony 07/14/2023 1 [facility] (PPO) Konrad Bartony [id number] FRANK Nicky Bartony 07/21/2023 1 [facility] (PPO[facility] Konrad Bartony [id number] FRANK Nicky Bartony 08/23/2023 1 [facility] (PPO) Konrad Bartony [id number] FRANK Nicky Bartony Notes Date Note Type Note Provider Name and Address Organization Details Recorded Time 08/23/2023 text/html VisitReported bypatient.Quality:N Context:complicatio ns of : none; complications of labor: none; complications: none; resumed menstrual bleeding ; good support from family and friends, ex not being very supportive Associated Symptoms:no vaginal discharge; no pelvic pain; no constipation; no fecal incontinence; no dysuria; no urinary incontinence; no fever; no problems; no mastitis; normal mood; occ spotting Contraception Plan:declines contraceptionNotes: doing well, wants to continue sertraline at current dose Calista wynn [facility] 08/25/2023 11:55:15 OBGyn Episode Ob Episode Information Episode Created Date Number of Fetuses Patient Bloodtype Patient rh Status Prepregnancy Weight lbs Domestic Partner Domestic Partner Phone Father Name [employer] Pilot Status 10/24/19 20 1 CLOSED Fetus Data First Name Last Name Admitted to NICU Weight (g) Sex Living Outcome Pediatric Complications Fetus ID Race Codes Race Delivery Type 3855.53 2 F Full Term 1990 Vaginal Delivery Angelito Calculation Initial Angelito Date Initial Exam Date Initial Exam Provider Initial Ultrasound Date Last Menstrual Period Date Ultra Sound Weeks Gestation 0 Eighteen To Twenty Week Angelito Update Ultra Sound Date Fundal Height At Umbil Quickening Date Ultra Sound Latest Weeks Gestation Final Angelito Confirmed By Final Angelito Confirmed Date Final Angelito Date Ultra Sound Latest Days Gestation 0 0 Menstrual History Last Menstrual Date Menses Monthly On Bcp Conception Prior Menses Frequency Hcg Plus Date Menarche Onset Age Delivery Information Delivery Date Delivery Type Labor Anesthesia Weeks Gestation Incision Type Labor Labor Length Hrs Delivered By Post Complications Tubal Sterilization Discharge Date Comments 8 39.3 GBS+ Discharge Information Feeding Method Contraceptive Method Maternal HG B and HCT Levels Ob Episode Information Episode Created Date Number of Fetuses Patient Bloodtype Patient rh Status Prepregnancy Weight lbs Domestic Partner Domestic Partner Phone Father Name Missile Control Pilot Status 10/24/19 20 1 CLOSED Fetus Data First Name Last Name Admitted to NICU Weight (g) Sex Living Outcome Pediatric Complications Fetus ID Race Codes Race Delivery Type 4139.02 7 M Full Term 1992 Vaginal Delivery Angelito Calculation Initial Angelito Date Initial Exam Date Initial Exam Provider Initial Ultrasound Date Last Menstrual Period Date Ultra Sound Weeks Gestation 0 Eighteen To Twenty Week Angelito Update Ultra Sound Date Fundal Height At Umbil Quickening Date Ultra Sound Latest Weeks Gestation Final Angelito Confirmed By Final Angelito Confirmed Date Final Angelito Date Ultra Sound Latest Days Gestation 0 0 Menstrual History Last Menstrual Date Menses Monthly On Bcp Conception Prior Menses Frequency Hcg Plus Date Menarche Onset Age Delivery Information Delivery Date Delivery Type Labor Anesthesia Weeks Gestation Incision Type Labor Labor Length Hrs Delivered By Post Complications Tubal Sterilization Discharge Date Comments 4 40 GBS+MILD SHOULDER DYSTOCIA UTERINE SYNECHIAE Discharge Information Feeding Method Contraceptive Method Maternal HG B and HCT Levels Ob Episode Information Episode Created Date Number of Fetuses Patient Bloodtype Patient rh Status Prepregnancy Weight lbs Domestic Partner Domestic Partner Phone Father Name Missile Control Pilot Status 10/24/19 20 1 CLOSED Fetus Data First Name Last Name Admitted to NICU Weight (g) Sex Living Outcome Pediatric Complications Fetus ID Race Codes Race Delivery Type 3997.05 2704 M Full Term 1991 Vaginal Delivery Angelito Calculation Initial Angelito Date Initial Exam Date Initial Exam Provider Initial Ultrasound Date Last Menstrual Period Date Ultra Sound Weeks Gestation 0 Eighteen To Twenty Week Angelito Update Ultra Sound Date Fundal Height At Umbil Quickening Date Ultra Sound Latest Weeks Gestation Final Angelito Confirmed By Final Angelito Confirmed Date Final Angelito Date Ultra Sound Latest Days Gestation 0 0 Menstrual History Last Menstrual Date Menses Monthly On Bcp Conception Prior Menses Frequency Hcg Plus Date Menarche Onset Age Delivery Information Delivery Date Delivery Type Labor Anesthesia Weeks Gestation Incision Type Labor Labor Length Hrs Delivered By Post Complications Tubal Sterilization Discharge Date Comments 0 40 Drayvin Discharge Information Feeding Method Contraceptive Method Maternal HG B and HCT Levels Ob Episode Information Episode Created Date Number of Fetuses Patient Bloodtype Patient rh Status Prepregnancy Weight lbs Domestic Partner Domestic Partner Phone Father Name Missile Control Pilot Status 10/24/19 20 1 CLOSED Fetus Data First Name Last Name Admitted to NICU Weight (g) Sex Living Outcome Pediatric Complications Fetus ID Race Codes Race Delivery Type 1133.98 F Demise 1993 Vaginal Delivery Angelito Calculation Initial Angelito Date Initial Exam Date Initial Exam Provider Initial Ultrasound Date Last Menstrual Period Date Ultra Sound Weeks Gestation 0 Eighteen To Twenty Week Angelito Update Ultra Sound Date Fundal Height At Umbil Quickening Date Ultra Sound Latest Weeks Gestation Final Angelito Confirmed By Final Angelito Confirmed Date Final Angelito Date Ultra Sound Latest Days Gestation 0 0 Menstrual History Last Menstrual Date Menses Monthly On Bcp Conception Prior Menses Frequency Hcg Plus Date Menarche Onset Age Delivery Information Delivery Date Delivery Type Labor Anesthesia Weeks Gestation Incision Type Labor Labor Length Hrs Delivered By Post Complications Tubal Sterilization Discharge Date Comments 0 26.6 , IUFD Discharge Information Feeding Method Contraceptive Method Maternal HG B and HCT Levels Ob Episode Information Episode Created Date Number of Fetuses Patient Bloodtype Patient rh Status Prepregnancy Weight lbs Domestic Partner Domestic Partner Phone Father Name Missile Control Pilot Status 10/24/19 20 1 CLOSED Fetus Data First Name Last Name Admitted to NICU Weight (g) Sex Living Outcome Pediatric Complications Fetus ID Race Codes Race Delivery Type , Spontane ous 1993 Angelito Calculation Initial Angelito Date Initial Exam Date Initial Exam Provider Initial Ultrasound Date Last Menstrual Period Date Ultra Sound Weeks Gestation 0 Eighteen To Twenty Week Angelito Update Ultra Sound Date Fundal Height At Umbil Quickening Date Ultra Sound Latest Weeks Gestation Final Angelito Confirmed By Final Angelito Confirmed Date Final Angelito Date Ultra Sound Latest Days Gestation 0 0 Menstrual History Last Menstrual Date Menses Monthly On Bcp Conception Prior Menses Frequency Hcg Plus Date Menarche Onset Age Delivery Information Delivery Date Delivery Type Labor Anesthesia Weeks Gestation Incision Type Labor Labor Length Hrs Delivered By Post Complications Tubal Sterilization Discharge Date Comments 3 Discharge Information Feeding Method Contraceptive Method Maternal HG B and HCT Levels Ob Episode Information Episode Created Date Number of Fetuses Patient Bloodtype Patient rh Status Prepregnancy Weight lbs Domestic Partner Domestic Partner Phone Father Name Missile Control Pilot Status 02/20/20 21 1 O Positive 199 CLOSED Fetus Data First Name Last Name Admitted to NICU Weight (g) Sex Living Outcome Pediatric Complications Fetus ID Race Codes Race Delivery Type 4535.92 M true Full Term [id number] Vaginal Delivery Problems Problem Notes h/o Thyroid biopsy 2019 - NL TSH 04/19 Problem Name Start Date End Date Resolution Snomed Code Not e Shoulder dystocia - delivered [id number] LGA baby. Past history of stillbirth [id number] 07/2019 at 26w. 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 Large for gestation age fetus 05/20/2021 [id number] rpt @ [facility] Angelito Calculation Initial Angelito Date Initial Exam Date Initial Exam Provider Initial Ultrasound Date Last Menstrual Period Date Ultra Sound Weeks Gestation 09/03/2021 02/19/2021 01/21/2021 11/27/2020 8 Eighteen To Twenty Week Angelito Update Ultra Sound Date Fundal Height At Umbil Quickening Date Ultra Sound Latest Weeks Gestation Final Angelito Confirmed By Final Angelito Confirmed Date Final Angelito Date Ultra Sound Latest Days Gestation 0 [email or web address] 02/19/2021 09/04/19 22 0 Pre-alban Flowsheet Flowsheet Date 02/19/2021 Weeks Score Blood Edema Fundus Height Fundus Units Glucose Ketones Leukocytes Nitrite Labor Signs Protein Cervic Dilation Cervic Effacement Cervic Station 12 Type Weight in lbs Pre/Post Dialysis Refused Weight 197.545893965328 BP Diastolic BP Location Tested BP Systolic BP Type 75 R arm 126 sitting Fetus Heart Rate Present A 160 Fetus Movement Comments This patient is a 30-year-ol d 6 para 3113. She has history of a stillbirth at 24 weeks and a shoulder dystocia. She had a vaginal after her shoulder dystocia. Her medical and surgical history unremarkable. We discussed care in some detail today. She is having genetic testing as well as alpha protein. She will return in 4 weeks. Flowsheet Date 03/19/2021 Weeks Score Blood Edema Fundus Height Fundus Units Glucose Ketones Leukocytes Nitrite Labor Signs Protein Cervic Dilation Cervic Effacement Cervic Station neg none trace Type Weight in lbs Pre/Post Dialysis Refused Weight 201.574480331236 BP Diastolic BP Location Tested BP Systolic BP Type 76 114 Fetus Heart Rate Present A 150 Fetus Movement A No Comments Doing well. Anxious before a ll appts, but ok otherwise. Declines genetic teseting. ANatomy US next visit. Plan serial growth US for h/o IUFD. Flowsheet Date 04/19/2021 Weeks Score Blood Edema Fundus Height Fundus Units Glucose Ketones Leukocytes Nitrite Labor Signs Protein Cervic Dilation Cervic Effacement Cervic Station Type Weight in lbs Pre/Post Dialysis Refused BP Diastolic BP Location Tested BP Systolic BP Type Fetus Heart Rate Present Fetus Movement Comments Flowsheet Date 04/19/2021 Weeks Score Blood Edema Fundus Height Fundus Units Glucose Ketones Leukocytes Nitrite Labor Signs Protein Cervic Dilation Cervic Effacement Cervic Station none trace Type Weight in lbs Pre/Post Dialysis Refused Weight 211.478493929874 BP Diastolic BP Location Tested BP Systolic BP Type 74 115 Fetus Heart Rate Present Fetus Movement A Yes Comments Doing well. Will check tsh t cici. Baseline anatomy today. Will await recommendations. Gender reveal tonight. History of IUFD d/t trisomy. Flowsheet Date 05/20/2021 Weeks Score Blood Edema Fundus Height Fundus Units Glucose Ketones Leukocytes Nitrite Labor Signs Protein Cervic Dilation Cervic Effacement Cervic Station Type Weight in lbs Pre/Post Dialysis Refused BP Diastolic BP Location Tested BP Systolic BP Type Fetus Heart Rate Present Fetus Movement Comments Flowsheet Date 05/20/2021 Weeks Score Blood Edema Fundus Height Fundus Units Glucose Ketones Leukocytes Nitrite Labor Signs Protein Cervic Dilation Cervic Effacement Cervic Station none none trace Type Weight in lbs Pre/Post Dialysis Refused Weight 216.116091679936 BP Diastolic BP Location Tested BP Systolic BP Type 77 121 Fetus Heart Rate Present Fetus Movement A Yes Comments Doing well. F/U u/s today fo r anatomy. LGA at 98%. Will await recommendations. For now plan repeat growth. Per Dr Wilson additional testing is not necessary for her history of IUFD. Flowsheet Date 06/17/2021 Weeks Score Blood Edema Fundus Height Fundus Units Glucose Ketones Leukocytes Nitrite Labor Signs Protein Cervic Dilation Cervic Effacement Cervic Station trace 30 none trace Type Weight in lbs Pre/Post Dialysis Refused Weight 223.853308437187 BP Diastolic BP Location Tested BP Systolic BP Type 75 117 Fetus Heart Rate Present A 140 Fetus Movement A Yes Comments Doing well. 1 hour gtt today . Encouraged covid, flu and tdap. Flowsheet Date 07/01/2021 Weeks Score Blood Edema Fundus Height Fundus Units Glucose Ketones Leukocytes Nitrite Labor Signs Protein Cervic Dilation Cervic Effacement Cervic Station none trace Type Weight in lbs Pre/Post Dialysis Refused Weight 222.34997210544 BP Diastolic BP Location Tested BP Systolic BP Type 73 112 Fetus Heart Rate Present Fetus Movement A Yes Comments Doing well. Did have a littl e spotting. No pain. Normal movement. Will check ultrasound today. Bleeding precautions discussed. Flowsheet Date 07/01/2021 Weeks Score Blood Edema Fundus Height Fundus Units Glucose Ketones Leukocytes Nitrite Labor Signs Protein Cervic Dilation Cervic Effacement Cervic Station Type Weight in lbs Pre/Post Dialysis Refused BP Diastolic BP Location Tested BP Systolic BP Type Fetus Heart Rate Present Fetus Movement Comments Flowsheet Date 07/12/2021 Weeks Score Blood Edema Fundus Height Fundus Units Glucose Ketones Leukocytes Nitrite Labor Signs Protein Cervic Dilation Cervic Effacement Cervic Station Type Weight in lbs Pre/Post Dialysis Refused BP Diastolic BP Location Tested BP Systolic BP Type Fetus Heart Rate Present Fetus Movement Comments Flowsheet Date 07/12/2021 Weeks Score Blood Edema Fundus Height Fundus Units Glucose Ketones Leukocytes Nitrite Labor Signs Protein Cervic Dilation Cervic Effacement Cervic Station trace Type Weight in lbs Pre/Post Dialysis Refused Weight 228.328419370533 BP Diastolic BP Location Tested BP Systolic BP Type 70 R arm 107 sitting Fetus Heart Rate Present A 138 Fetus Movement A Yes Comments Baby in the 97th percentile, we discussed delivery as a possibility, she would very much like to avoid , history of shoulder dystocia also. Flowsheet Date 07/27/2021 Weeks Score Blood Edema Fundus Height Fundus Units Glucose Ketones Leukocytes Nitrite Labor Signs Protein Cervic Dilation Cervic Effacement Cervic Station neg none 37 none trace Type Weight in lbs Pre/Post Dialysis Refused Weight 233.366372805766 BP Diastolic BP Location Tested BP Systolic BP Type 78 115 Fetus Heart Rate Present A 145 Fetus Movement A Yes Comments Ddoing well, no concerns. Gr owth US next visit. Pt strongly desires vaginal delivery, is aware of risks with LGA and h/o SD. GBS next. Encouraged 39w IOL. Flowsheet Date 08/09/2021 Weeks Score Blood Edema Fundus Height Fundus Units Glucose Ketones Leukocytes Nitrite Labor Signs Protein Cervic Dilation Cervic Effacement Cervic Station neg none 39 none trace 1cm 30% -3 Type Weight in lbs Pre/Post Dialysis Refused Weight 233.063092278617 BP Diastolic BP Location Tested BP Systolic BP Type 75 110 Fetus Heart Rate Present A 150 Fetus Movement A Yes Comments Doing well, great FM. US was 97%, has another next visit. Her shoulder dystocia was 9-2 baby. She strongly wants vaginal delivery and is hoping she goes early, but would like 39w IOL scheduled if not. Will schedule with MD as LGA and h/o SD. Precautions given. Flowsheet Date 08/17/2021 Weeks Score Blood Edema Fundus Height Fundus Units Glucose Ketones Leukocytes Nitrite Labor Signs Protein Cervic Dilation Cervic Effacement Cervic Station Type Weight in lbs Pre/Post Dialysis Refused BP Diastolic BP Location Tested BP Systolic BP Type Fetus Heart Rate Present Fetus Movement Comments Flowsheet Date 08/17/2021 Weeks Score Blood Edema Fundus Height Fundus Units Glucose Ketones Leukocytes Nitrite Labor Signs Protein Cervic Dilation Cervic Effacement Cervic Station neg none 40 none trace 3cm 60% -2 Type Weight in lbs Pre/Post Dialysis Refused Weight 233.160629092911 BP Diastolic BP Location Tested BP Systolic BP Type 75 115 Fetus Heart Rate Present A 155 Fetus Movement A Yes Comments Doing ok, just uncomfortable . US today symmetric LGA at 925. IOL at 39w. Precautions given. Flowsheet Date 08/25/2021 Weeks Score Blood Edema Fundus Height Fundus Units Glucose Ketones Leukocytes Nitrite Labor Signs Protein Cervic Dilation Cervic Effacement Cervic Station neg trace trace 3cm 50% -2 Type Weight in lbs Pre/Post Dialysis Refused Weight 236.783678367217 BP Diastolic BP Location Tested BP Systolic BP Type 76 119 Fetus Heart Rate Present A 145 Present Fetus Movement A Yes Comments PATIENT STATES THAT HAVING S OME SWELLING. precautions reviewed IOL scheduled Menstrual History Last Menstrual Date Menses Monthly On Bcp Conception Prior Menses Frequency Hcg Plus Date Menarche Onset Age 0711/27/2020 Genetic Screening And Infection History Question Response Note Mental Retardation/Autism false Patient's Age Will Be 35 Years Or Older At Estim ated Date of Delivery false Thalassemia (Swedish, Qatari, Mediterranean, Or Background): MCV < 80 false Neural Tube Defect (Meningomyelocele, Spina Bifi da, Or Anencephaly) false Congenital Heart Defect false Down Syndrome false Nico-Sachs (eg, Catholic, Cajun, Namibian-Jamaican) f alse Juliana Disease false Sickle Cell Disease Or Trait () false Hemophilia Or Other Blood Disorders false Muscular Dystrophy false Cystic Fibrosis false Cullman's Chorea false Intellectual Disability/Autism false If Yes, Was Person Tested For Fragile X? false Other Inherited Genetic Or Chromosomal Disorder false Maternal Metabolic Disorder (eg, Type 1 Diabetes , PKU) false Patient Or Baby's Father Had A Child With Defects Not Listed Above false Recurrent Loss, Or A Stillbirth false Medications (including Suppl ements, Vitamins, Herbs, OTC Drugs), Illicit/Recreational Drugs, Alcohol false If Yes, Agent(s) And Strength/Dosage false Any Other Genetic History false Live With Someone With TB Or Exposed To TB false Patient Or Partner Has History Of Genital Herpes false Rash Or Viral Illness Since Last Menstrual Perio d false History Of STD, Gonorrhea, Chlamydia, HPV, Syphi lis false Other Infection History false History of HIV false History of Hepatitis false Prior GBS-infected child false Hemoglobinopathy Or Carrier false Other Structural Defect false Recent Travel History Outside of Country false Delivery Information Delivery Date Delivery Type Labor Anesthesia Weeks Gestation Incision Type Labor Labor Length Hrs Delivered By Post Complications Tubal Sterilization Discharge Date Comments 2 Induce d Regional-Ep idural 39 false Renetta Tate CNM LGA Discharge Information Feeding Method Contraceptive Method Maternal HG B and HCT Levels Breast Ob Episode Information Episode Created Date Number of Fetuses Patient Bloodtype Patient rh Status Prepregnancy Weight lbs Domestic Partner Domestic Partner Phone Father Name Missile Control Pilot Status 01/26/20 23 1 O Positive 196 Konrad Mao CLOSED Fetus Data First Name Last Name Admitted to NICU Weight (g) Sex Living Outcome Pediatric Complications Fetus ID Race Codes Race Delivery Type 3628.73 6 F true Full Term [id number] Vaginal Delivery Problems Problem Notes [facility] location - 07/03 0815 U/S, 07/31/23 815a u/s only Problem Name Start Date End Date Resolution Snomed Code Not e Large for gestation age fetus [id number] shoulder dystocia, last 2021 10lbs without dystocia- Growth 3rd trimester ? 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, LD ASA Mixed anxiety and depressive disorder [id number] 05/02 Zo loft 25mg Angelito Calculation Initial Angelito Date Initial Exam Date Initial Exam Provider Initial Ultrasound Date Last Menstrual Period Date Ultra Sound Weeks Gestation 08/02/2023 12/28/2022 12/28/2022 10/28/2022 9 Eighteen To Twenty Week Angelito Update Ultra Sound Date Fundal Height At Umbil Quickening Date Ultra Sound Latest Weeks Gestation Final Angelito Confirmed By Final Angelito Confirmed Date Final Angelito Date Ultra Sound Latest Days Gestation 0 08/04/19 24 0 Pre-alban Flowsheet Flowsheet Date 01/25/2023 Weeks Score Blood Edema Fundus Height Fundus Units Glucose Ketones Leukocytes Nitrite Labor Signs Protein Cervic Dilation Cervic Effacement Cervic Station neg none none trace Type Weight in lbs Pre/Post Dialysis Refused Weight 194.080613676529 BP Diastolic BP Location Tested BP Systolic BP Type 77 119 Fetus Heart Rate Present Fetus Movement A Yes Comments Pt plans tdap and flu with p regnancy, declines covid, rec reviewed, education and precautions f/u 4 weeks NT wnl, labs and nips today Flowsheet Date 02/22/2023 Weeks Score Blood Edema Fundus Height Fundus Units Glucose Ketones Leukocytes Nitrite Labor Signs Protein Cervic Dilation Cervic Effacement Cervic Station neg none none trace Type Weight in lbs Pre/Post Dialysis Refused Weight 197.702984788107 BP Diastolic BP Location Tested BP Systolic BP Type 77 126 Fetus Heart Rate Present A 155 Present Fetus Movement A Yes Comments doing well, no complaints, e pson salt bath for insomnia, anatomy at next visit wants tp try and avoid IOL Flowsheet Date 03/22/2023 Weeks Score Blood Edema Fundus Height Fundus Units Glucose Ketones Leukocytes Nitrite Labor Signs Protein Cervic Dilation Cervic Effacement Cervic Station Type Weight in lbs Pre/Post Dialysis Refused BP Diastolic BP Location Tested BP Systolic BP Type Fetus Heart Rate Present Fetus Movement Comments Flowsheet Date 03/22/2023 Weeks Score Blood Edema Fundus Height Fundus Units Glucose Ketones Leukocytes Nitrite Labor Signs Protein Cervic Dilation Cervic Effacement Cervic Station neg none none trace Type Weight in lbs Pre/Post Dialysis Refused Weight 205.989988923849 BP Diastolic BP Location Tested BP Systolic BP Type 77 115 Fetus Heart Rate Present Fetus Movement A Yes Comments anatomy complete efw 39%, Do ing well, +FM, precautions and educationwill have rn call with ASA rec f/u 4 weeks Flowsheet Date 04/21/2023 Weeks Score Blood Edema Fundus Height Fundus Units Glucose Ketones Leukocytes Nitrite Labor Signs Protein Cervic Dilation Cervic Effacement Cervic Station neg none none trace Type Weight in lbs Pre/Post Dialysis Refused Weight 208.116738045973 BP Diastolic BP Location Tested BP Systolic BP Type 75 121 Fetus Heart Rate Present A 147 Fetus Movement A Yes Comments patient is having some contr actions. ptl precautions, feels baby is small, measuring at umbilicus, 20, will get growth us next visit, plan GCT Flowsheet Date 05/02/2023 Weeks Score Blood Edema Fundus Height Fundus Units Glucose Ketones Leukocytes Nitrite Labor Signs Protein Cervic Dilation Cervic Effacement Cervic Station Type Weight in lbs Pre/Post Dialysis Refused BP Diastolic BP Location Tested BP Systolic BP Type Fetus Heart Rate Present Fetus Movement Comments Flowsheet Date 05/10/2023 Weeks Score Blood Edema Fundus Height Fundus Units Glucose Ketones Leukocytes Nitrite Labor Signs Protein Cervic Dilation Cervic Effacement Cervic Station Type Weight in lbs Pre/Post Dialysis Refused BP Diastolic BP Location Tested BP Systolic BP Type Fetus Heart Rate Present Fetus Movement Comments Flowsheet Date 05/10/2023 Weeks Score Blood Edema Fundus Height Fundus Units Glucose Ketones Leukocytes Nitrite Labor Signs Protein Cervic Dilation Cervic Effacement Cervic Station neg none none trace Type Weight in lbs Pre/Post Dialysis Refused Weight 210.654354751081 BP Diastolic BP Location Tested BP Systolic BP Type 77 120 Fetus Heart Rate Present Fetus Movement A Yes Comments patient states that having s ome contractions. growth efw 38%, +FM, started zoloft, in individual and couples therapy, zoloft is working and feels shes on the right dose. precautions reviewed gct today f/u 2 weeks Flowsheet Date 05/26/2023 Weeks Score Blood Edema Fundus Height Fundus Units Glucose Ketones Leukocytes Nitrite Labor Signs Protein Cervic Dilation Cervic Effacement Cervic Station neg none 28 none trace Type Weight in lbs Pre/Post Dialysis Refused Weight 211.902914577446 BP Diastolic BP Location Tested BP Systolic BP Type 76 120 Fetus Heart Rate Present A 145 Present Fetus Movement A Yes Comments doing well on sertraline 50m g, +FM, doing well plan growth next visit hx LGA at term, f/u 2 weeks Flowsheet Date 06/09/2023 Weeks Score Blood Edema Fundus Height Fundus Units Glucose Ketones Leukocytes Nitrite Labor Signs Protein Cervic Dilation Cervic Effacement Cervic Station neg none 30 none trace Type Weight in lbs Pre/Post Dialysis Refused Weight 210.071542565357 BP Diastolic BP Location Tested BP Systolic BP Type 68 110 Fetus Heart Rate Present A 133 Present Fetus Movement A Yes Comments patient is having some hip p ain. doing online yoga, has f/u us scheduled, +FM, mood good f/u 2 weeks, call for preadmit, rx for rsv given Flowsheet Date 06/23/2023 Weeks Score Blood Edema Fundus Height Fundus Units Glucose Ketones Leukocytes Nitrite Labor Signs Protein Cervic Dilation Cervic Effacement Cervic Station Type Weight in lbs Pre/Post Dialysis Refused BP Diastolic BP Location Tested BP Systolic BP Type Fetus Heart Rate Present Fetus Movement Comments Flowsheet Date 06/23/2023 Weeks Score Blood Edema Fundus Height Fundus Units Glucose Ketones Leukocytes Nitrite Labor Signs Protein Cervic Dilation Cervic Effacement Cervic Station neg trace none trace Type Weight in lbs Pre/Post Dialysis Refused Weight 216.791649921886 BP Diastolic BP Location Tested BP Systolic BP Type 74 109 Fetus Heart Rate Present Fetus Movement A Yes Comments patient states that having s ome swelling. reviewed education and precautionsefw 21% AC 8%, plan MFM f/u, gbs at next visit,travel precautions, family trip Flowsheet Date 07/07/2023 Weeks Score Blood Edema Fundus Height Fundus Units Glucose Ketones Leukocytes Nitrite Labor Signs Protein Cervic Dilation Cervic Effacement Cervic Station neg none none trace Type Weight in lbs Pre/Post Dialysis Refused Weight 217.435164045836 BP Diastolic BP Location Tested BP Systolic BP Type 75 120 Fetus Heart Rate Present A 143 Fetus Movement A Yes Comments patient state that having so me contractions. no problems, average size baby, little pelvic pressure, routine care, GBS today Flowsheet Date 07/14/2023 Weeks Score Blood Edema Fundus Height Fundus Units Glucose Ketones Leukocytes Nitrite Labor Signs Protein Cervic Dilation Cervic Effacement Cervic Station neg none 35 none trace 2cm 50% -2 Type Weight in lbs Pre/Post Dialysis Refused Weight 221.801811224595 BP Diastolic BP Location Tested BP Systolic BP Type 71 117 Fetus Heart Rate Present Fetus Movement A Yes Comments doing well, ready for baby ! +FM, education and precautions f/u one week Flowsheet Date 07/21/2023 Weeks Score Blood Edema Fundus Height Fundus Units Glucose Ketones Leukocytes Nitrite Labor Signs Protein Cervic Dilation Cervic Effacement Cervic Station neg none 36 cm none trace 3cm 70% -2 Type Weight in lbs Pre/Post Dialysis Refused Weight [id number] BP Diastolic BP Location Tested BP Systolic BP Type 76 120 Fetus Heart Rate Present A 144 Present Fetus Movement A Yes Comments doing well, +FM, membrane sw eep today, precautions reviewed Menstrual History Last Menstrual Date Menses Monthly On Bcp Conception Prior Menses Frequency Hcg Plus Date Menarche Onset Age 0610/28/2022 Genetic Screening And Infection History Question Response Note Mental Retardation/Autism false Patient's Age Will Be 35 Yea rs Or Older At Estimated Date of Delivery false Thalassemia (Swedish, Qat[place], Mediterranean, Or Background): MCV < 80 false Neural Tube Defect (Meningomyelocele, Spina Bifi da, Or Anencephaly) false Congenital Heart Defect false Down Syndrome false Nico-Sachs (eg, Catholic, Cajun, Namibian-Jamaican) f alse Juliana Disease false Sickle Cell Disease Or Trait () false Hemophilia Or Other Blood Disorders false Muscular Dystrophy false Cystic Fibrosis false Baljinder's [place] false Intellectual Disability/Autism false If Yes, Was Person Tested For Fragile X? false Other Inherited Genetic Or Chromosomal Disorder false Maternal Metabolic Disorder (eg, Type 1 Diabetes , PKU) false Patient Or Baby's Father Had A Child With Defects Not Listed Above false Recurrent Loss, Or A Stillbirth true 26 weeks Medications (including Suppl ements, Vitamins, Herbs, OTC Drugs), Illicit/Recreational Drugs, Alcohol false If Yes, Agent(s) And Strength/Dosage false Any Other Genetic History false Live With Someone With TB Or Exposed To TB false Patient Or Partner Has History Of Genital Herpes false Rash Or Viral Illness Since Last Menstrual Perio d false History Of STD, Gonorrhea, Chlamydia, HPV, Syphi lis false Other Infection History false History of HIV false History of Hepatitis false Prior GBS-infected child false Hemoglobinopathy Or Carrier false Other Structural Defect false Recent Travel History Outside of Country false Delivery Information Delivery Date Delivery Type Labor Anesthesia Weeks Gestation Incision Type Labor Labor Length Hrs Delivered By Post Complications Tubal Sterilization Discharge Date Comments 4 Sponta neous None 39 false Sussy Barakat CNM History of intrauter ine ,Lar ge for gestation age fetus,Mix ed anxiety and depressiv e disorder Discharge Information Feeding Method Contraceptive Method Maternal HG B and HCT Levels
== END 2024-06-12 12:25 | disposition home or self-care (01) ==
PROVIDERS: PCP Nurse Practitioner Family; Visit Provider Internal Medicine Endocrinology, Diabetes & Metabolism
DX: R79.89 Other specified abnormal findings of blood chemistry (principal); Z80.8 Family history of malignant neoplasm of other organs or systems; E04.2 Nontoxic multinodular goiter
CPT/HCPCS: 76536